=== PATIENT | female | born 1955 | race Caucasian/White ===

== ENCOUNTER 2018-03-30 20:23 | Inpatient (IN) | payer MEDICAID ==
[~2018-03-30] VITALS: Ht 177.8 cm; Wt 58.1 kg
[~2018-03-30 20:23] MED LIST: LORA1TAB PO
[2018-03-30] MEDS ORDERED: SULF1TAB48 PO (20:32)
--- NOTE | 2018-03-30 20:54 | NUR ---
Dr. Mallory JARAMILLO MD at bedside for MSE.
[2018-03-30] MEDS ORDERED: ACETAMINOPHEN ES 500 MG TABLET PO ONE (21:00)
[2018-03-30] MEDS ORDERED: KETOROLAC TROMETHAMINE 30 MG INJ IVP ONE (21:00)
[2018-03-30] MEDS ORDERED: IV NORMAL SALINE 1000 ML BAG IV ONE ×2 (21:00→22:30)
[2018-03-30] MEDS ORDERED: ALBUTEROL SULFATE 2.5 MG/3 ML NEBU NEB ONE (21:00)
[2018-03-30] MEDS ORDERED: ALBUTEROL SULFATE 2.5 MG/3 ML NEBU ONE (21:08)
[2018-03-30 21:12] LABS: *BLOOD, URINE 1+ (NEGATIVE); *CLARITY,URINE CLOUDY (CLEAR); *COLOR,URINE YELLOW (YELLOW); *KETONES,URINE TRACE (NEGATIVE); *PROTEIN,URINE 2+ (NEGATIVE); LEUKOCYTE ESTERASE ,URINE NEGATIVE (NEGATIVE); NITRITE, URINE NEGATIVE (NEGATIVE); PH,URINE 5.5 (5.0-8.0); UGLUCOSE NEGATIVE (NEGATIVE)
[2018-03-30 21:16] LABS: *BILIRUBIN,URIN 1+ (NEGATIVE)
--- NOTE | 2018-03-30 21:18 | NUR ---
Pt walked into ER with c/o shortness of breath, fever, & body aches x 4 days. Upon triage, pt temp is 101.8 F. SA02 98% room air. Pt placed on monitor.
[2018-03-30 21:31] LABS: BASOPHILS % (AUTO) 0.1 % (0.0-2.0); HEMOGLOBIN 10.4 g/dL (10.9-14.3); MEAN CORPUSCULAR HGB CONC 34 g/dL (32.3-35.6); MEAN CORPUSCULAR VOLUME 92.3 fL (75.5-95.3); MONOCYTES # (AUTO) 1.5 K/uL (2.0-10.0); MONOCYTES % (AUTO) 7.8 % (0.0-11.0); NEUTROPHILS # (AUTO) 16.5 K/uL (1.8-8.9); NEUTROPHILS % (AUTO) 87.1 % (38.5-71.5); PLATELET COUNT (AUTO) 231 K/uL (179-408); RED BLOOD CELL COUNT(AUTO) 3.36 MIL/uL (3.63-4.92); WHITE BLOOD COUNT (AUTO) 18.9 K/uL (3.8-11.8)
[2018-03-30 21:32] LABS: BACTERIA,URINE RARE /HPF (NONE SEEN); SQUAMOUS EPITHELIAL CELL,UR FEW /HPF (NONE SEEN); URINE AMORPHOUS URATE FEW /HPF
[2018-03-30] MEDS ORDERED: ACETAMINOPHEN ES 500 MG TABLET ONE (21:39)
[2018-03-30] MEDS ORDERED: KETOROLAC TROMETHAMINE 30 MG INJ ONE (21:40)
[2018-03-30 21:42] LABS: CREATININE 1.3 mg/dL (0.6-1.3); POTASSIUM 3.9 mmol/L (3.5-5.1)
[2018-03-30 21:57] LABS: BILIRUBIN,DIRECT 0.2 mg/dL (0.0-0.2); BILIRUBIN,TOTAL 0.7 mg/dL (0.2-1.0); TOTAL PROTEIN, SERUM 7.3 g/dL (6.4-8.2)
[2018-03-30] MEDS ORDERED: PIPERACILLIN SODIUM/TAZO 3.375 GM VIAL ONE (22:27)
[2018-03-30] MEDS ORDERED: VANCOMYCIN IV 1,000 MG in IV DEXTROSE 5% 250 ML IV ONE (22:30)
[2018-03-30] MEDS ORDERED: PIPERACILLIN SODIUM/TAZOBACTAM 3.375 G in IV DEXTROSE 5% 50 ML IV ONE (22:30)
--- NOTE | 2018-03-30 22:33 | NUR ---
Paged [email or web address] for panel call. Pending call back from Sara Arvizu NP.
[2018-03-30] MEDS ORDERED: ONDANSETRON 4 MG/2 ML VIAL IV PRN (22:45)
[2018-03-30] MEDS ORDERED: ACETAMINOPHEN 650 MG SUPP.RECT RC PRN (22:45)
--- NOTE | 2018-03-30 22:48 | NUR ---
Dr. Mallory JARAMILLO MD speaking to Sara Arvizu NP on phone.
[2018-03-30] MEDS ORDERED: NORMAL SALINE FLUSH 10 ML DISP.SYRIN ONE (22:52)
[2018-03-30] MEDS ORDERED: IOHEXOL 300MG/ML 100 ML INFUS..BTL ONE (22:52)
[2018-03-30] MEDS ORDERED: SWABABLE VALVE TRANSFER SET EA MC ONE (22:52)
[2018-03-30] MEDS ORDERED: IV NORMAL SALINE 250 ML IV ONE (22:52)
--- NOTE | 2018-03-30 23:06 | NUR ---
Dr. Tejada on phone with Sara Arvizu regarding [facility] status for pt.
--- NOTE | 2018-03-30 23:11 | NUR ---
Pt brought down to radiology dept for CT scan.
[2018-03-30] MEDS ORDERED: VANCOMYCIN IV 200 ML ONE (23:30)
--- NOTE | 2018-03-30 23:55 | NUR ---
Pt. admitted to [facility] , under care of Sara Arvizu NP. Dx: Sepsis Belongs List completed
[2018-03-31] VITALS (8 sets, daily range): BP systolic 81–102; BP diastolic 37–55
--- NOTE | 2018-03-31 00:15 | NUR ---
Received patient from ER via gurney accompanied by RNs DX:sepsis, abscess R buttocks. Patient AAO, NAD noted. Routine admission care discussed with patient. Verbalized understanding. Complete assessment done.
--- NOTE | 2018-03-31 00:30 | NUR ---
Another IV inserted to RFA with # 20 angiocath. Repeat Lactic acid done. Vancomycin IVPB resumed. Patient with multiple sores to lips, nose and hands. Also with R buttocks wound. Culture swab obtained. Photos taken of skin issues. Belonging list completed by Flor BARRETO.
--- NOTE | 2018-03-31 00:45 | NUR ---
Up to the BR without problems. Voided. C/o being hungry. Denies n/v.
[2018-03-31] MEDS: IV NS 1000 ML 1,000 ML IV PRN ×3 (00:47→20:02)
--- NOTE | 2018-03-31 01:00 | NUR ---
R buttocks wound culture and MRSA nasal swab to lab. [place] provided; on Regular diet. Ate well.
[2018-03-31] MEDS ORDERED: Z GUARD REMEDY PASTE 57 GM TUBE TOP PRN (03:30)
[2018-03-31] MEDS ORDERED: PIPERACILLIN/TAZOBACTAM/D5W 50 ML IV ONE (04:04)
[2018-03-31] MEDS ORDERED: PIPERACILLIN/TAZOBACTAM/D5W 50 ML IV SCH (06:00)
--- NOTE | 2018-03-31 06:53 | NUR ---
Slept well during the shift. Up to the BR to void with very minimal assistance due to main IV infusing. Patient cooperative; denies any discomfort. Tele monitor: SR rate 70's.
[2018-03-31 07:06] LABS: BASOPHILS % (AUTO) 0.3 % (0.0-2.0); EOSINOPHILS # (AUTO) 0.1 K/uL (0.0-0.7); EOSINOPHILS % (AUTO) 0.4 % (0.0-7.0); HEMATOCRIT 27.9 % (31.2-41.9); HEMOGLOBIN 9.6 g/dL (10.9-14.3); LYMPHOCYTES # (AUTO) 0.7 K/uL (20.0-40.0); MEAN CORPUSCULAR HEMOGLOBIN 31.4 uug (24.7-32.8); MEAN CORPUSCULAR HGB CONC 34 g/dL (32.3-35.6); MEAN CORPUSCULAR VOLUME 91.6 fL (75.5-95.3); MONOCYTES # (AUTO) 1.2 K/uL (2.0-10.0); MONOCYTES % (AUTO) 8.2 % (0.0-11.0); NEUTROPHILS # (AUTO) 12.9 K/uL (1.8-8.9); NEUTROPHILS % (AUTO) 86.1 % (38.5-71.5); PLATELET COUNT (AUTO) 175 K/uL (179-408); RED BLOOD CELL COUNT(AUTO) 3.04 MIL/uL (3.63-4.92)
[2018-03-31 07:22] LABS: THYROID STIMULATING HORMONE 1.49 mIU/mL (0.358-3.740)
[2018-03-31] MEDS ORDERED: PANTOPRAZOLE SODIUM 40 MG VIAL IV SCH (07:30)
[2018-03-31 07:35] LABS: POTASSIUM 3.5 mmol/L (3.5-5.1)
[2018-03-31 07:41] LABS: BILIRUBIN,TOTAL 0.9 mg/dL (0.2-1.0); MAGNESIUM 1.8 mg/dL (1.8-2.4); PHOSPHOROUS 2.8 mg/dL (2.5-4.9)
[2018-03-31] MEDS ORDERED: IV NORMAL SALINE 500 ML IV STA (07:51)
--- NOTE | 2018-03-31 08:00 | NUR ---
AWAKE ALERT AND VERBALLY RESPONSIVE NO SS OF PAIN OR DISTRESS. NOTED LOW BP 81/49 - 89/46. DENIES NASEA AND VOMITING, NO HEADACHE. DR SOTO NOTIFIED WITH ORDER TO BOLUS 500 CC NS X1
[2018-03-31] MEDS ORDERED: Z GUARD REMEDY PASTE 57 GM TUBE TOP SCH (09:00)
--- NOTE | 2018-03-31 09:12 | NUR ---
Clinical Pharmacy Note: Vancomycin Dosing per Pharmacy Subjective: Vancomycin IV to start on this 63 yo female patient for sepsis. Objective: BUN 18/Scr 1.0 WBC 15 Temperature 98.5 wt 58 kg ht 177.8 cm Assessment/Plan: Patient received vanco 1gm IVPB x1 on 03/30 at 2338. Will start vancomycin 1000mg IVPB Q21hr for a predicted vancomycin steady state trough level of 15.8 mcg/ml.Second dose today at 2100. Will draw a vancomycin trough level prior to the 4th dose of vancomycin (not ordered yet). Will monitor renal function and adjust vancomycin dose, if needed, should renal function change significantly. Will follow daily.
[2018-03-31] MEDS: PIPERACILLIN/TAZOBACTAM/D5W 3.375 G in PREMIXED 1 EACH IV SCH ×2 (13:06→21:54)
[2018-03-31] MEDS: ACETAMINOPHEN 325 MG TABLET PO PRN (13:06)
--- NOTE | 2018-03-31 13:13 | NUR ---
CONTINUE WITH IV HYDRATION AND IV ANTIBIOTICS NO SS OF ALLERGY REACTION
[2018-03-31] MEDS ORDERED: MORPHINE SULFATE 2 MG/1 ML DISP.SYRIN IV PRN (14:00)
[2018-03-31] MEDS: MORPHINE SULFATE 4 MG/1 ML DISP.SYRIN IV PRN (14:25)
[2018-03-31 15:04] LABS: IRON, SERUM 10 ug/dL (50-175)
[2018-03-31] MEDS: NICOTINE 21 MG/24HR PATCH TD SCH (15:23)
--- NOTE | 2018-03-31 19:35 | NUR ---
Patient is awake, aaox4 denies pain or any distress on assessment. safety measures in place, will continue to monitor patient
[2018-03-31] MEDS: LACTOBACILLUS RHAMNOSUS GG 1 EACH CAPSULE PO SCH (20:02)
[2018-03-31] MEDS: VANCOMYCIN IV 1 G in PREMIXED 0 EACH IV SCH (20:02)
[2018-04-01] VITALS: BP 107/49
--- NOTE | 2018-04-01 03:15 | NUR ---
Received report from SLOANE OQUENDO. Pt sleeping at this time, easily arousable. Tele noted to be SR with HR 66. Pt shows no signs of acute distress at this time. Aware of all orders. Will continue to monitor pt.
[2018-04-01 04:00] VITALS: BP 107/55
[2018-04-01] MEDS: PIPERACILLIN/TAZOBACTAM/D5W 3.375 G in PREMIXED 1 EACH IV SCH ×3 (05:58→21:11)
[2018-04-01] MEDS: PANTOPRAZOLE SODIUM 40 MG TABLET.DR PO SCH (06:05)
--- NOTE | 2018-04-01 07:07 | NUR ---
WOUND CARE CONSULT WOUND CARE RECEIVED CONSULT FOR R BUTTOCKS ABSCESS. WOUND CARE WILL DEFER CONSULT AND TREATMENT PLAN TO SURGICAL TEAM WHO ARE CURRENTLY FOLLOWING. PATIENT WITH JIMMY AT 19. WILL SEE PRN.
--- NOTE | 2018-04-01 07:15 | NUR ---
RECEIVED PATIENT ON BED ASLEEP, AAOX3 NO ACUTE DISTRESS NOTED. ON TELE SR 60'SIV ACCESS ON THE R FA #[id number] RUNNING NS @100CC/HR INFUSING WELL. WOUND CONSULT DEFERRED.NO COMPLAINTS OF PAIN/DISCOMFORT NO SOB. COMFORT MEASURES PROVIDED. CALL LIGHT WITHIN REACH WILL CONTINUE TO MONITOR CLOSELY.
[2018-04-01] MEDS: LACTOBACILLUS RHAMNOSUS GG 1 EACH CAPSULE PO SCH ×2 (08:15→20:08)
[2018-04-01] MEDS: NICOTINE 21 MG/24HR PATCH TD SCH (08:15)
[2018-04-01 10:04] LABS: BASOPHILS % (AUTO) 0.1 % (0.0-2.0); CREATININE 0.8 mg/dL (0.6-1.3); EOSINOPHILS # (AUTO) 0.1 K/uL (0.0-0.7); EOSINOPHILS % (AUTO) 0.6 % (0.0-7.0); HEMATOCRIT 29.8 % (31.2-41.9); HEMOGLOBIN 10.2 g/dL (10.9-14.3); LYMPHOCYTES # (AUTO) 0.6 K/uL (20.0-40.0); LYMPHOCYTES % (AUTO) 4.8 % (20.5-51.5); MAGNESIUM 1.9 mg/dL (1.8-2.4); MEAN CORPUSCULAR HEMOGLOBIN 30.9 uug (24.7-32.8); MEAN CORPUSCULAR HGB CONC 34 g/dL (32.3-35.6); MEAN CORPUSCULAR VOLUME 90.4 fL (75.5-95.3); MONOCYTES # (AUTO) 0.7 K/uL (2.0-10.0); MONOCYTES % (AUTO) 6.2 % (0.0-11.0); NEUTROPHILS # (AUTO) 10.2 K/uL (1.8-8.9); NEUTROPHILS % (AUTO) 88.3 % (38.5-71.5); POTASSIUM 3.9 mmol/L (3.5-5.1); RED BLOOD CELL COUNT(AUTO) 3.29 MIL/uL (3.63-4.92); WHITE BLOOD COUNT (AUTO) 11.6 K/uL (3.8-11.8)
[2018-04-01 10:38] LABS: PLATELET COUNT (AUTO) 213 K/uL (179-408)
[2018-04-01 11:03] VITALS: BP 108/51
--- NOTE | 2018-04-01 13:25 | NUR ---
Clinical Pharmacy Note: Vancomycin Dosing per Pharmacy Subjective: Vancomycin IV to continue on this 63 yo female patient for sepsis. Objective: BUN 12/Scr 0.8 WBC 11.6 Temperature 97.9 wt 58 kg ht 177.8 cm Assessment/Plan: Will continue same dose of vancomycin 1000mg IVPB Q21hr for today. 3rd dose due today at 1800. Will draw a vancomycin trough level prior to the 4th dose of vancomycin (ordered for 04/02 at 1430). Pharmacy will review the level when available & adjust the dose if needed. Will follow daily.
[2018-04-01 15:03] VITALS: BP 110/55
[2018-04-01] MEDS: VANCOMYCIN IV 1 G in PREMIXED 0 EACH IV SCH (17:59)
[2018-04-01] MEDS: SODIUM HYPOCHLORITE 0.125% 473 ML BOTTLE TP SCH (18:38)
--- NOTE | 2018-04-01 19:20 | NUR ---
RECEIVED PT AWAKE, ALERT, ORIENTEDX4. PT SHOWS NO SIGNS OF DISTRESS. IV INTACT AND PATENT. CALL LIGHT WITHIN REACH. SAFETY AND COMFORT PROVIDED. WILL CONTINUE TO MONITOR.
[2018-04-01 20:00] VITALS: BP 118/69
[2018-04-01] MEDS: MORPHINE SULFATE 4 MG/1 ML DISP.SYRIN IV PRN (21:25)
[2018-04-02 04:00] VITALS: BP 121/54
[2018-04-02] MEDS: PIPERACILLIN/TAZOBACTAM/D5W 3.375 G in PREMIXED 1 EACH IV SCH ×2 (05:18→13:35)
[2018-04-02] MEDS: PANTOPRAZOLE SODIUM 40 MG TABLET.DR PO SCH (06:02)
--- NOTE | 2018-04-02 06:31 | NUR ---
PT SLEPT THROUGHOUT THE SHIFT. PT SHOWS NO SIGNS OF DISTRESS. PRESCRIBED MEDICATION GIVEN AND PT TOLERATED IT WELL. PAIN MEDICATION GIVEN DOCTOR PRESCRIBED. PT TOLERATED IT WELL. SAFETY AND COMFORT PROVIDED. ALL NEEDS ARE MET. WILL ENDORSE TO INCOMING NURSE FOR CONTINUITY OF CARE.
[2018-04-02 07:42] LABS: BASOPHILS % (AUTO) 0.2 % (0.0-2.0); EOSINOPHILS # (AUTO) 0.1 K/uL (0.0-0.7); EOSINOPHILS % (AUTO) 0.8 % (0.0-7.0); HEMATOCRIT 28.8 % (31.2-41.9); LYMPHOCYTES # (AUTO) 0.7 K/uL (20.0-40.0); LYMPHOCYTES % (AUTO) 7.4 % (20.5-51.5); MEAN CORPUSCULAR HEMOGLOBIN 31.2 uug (24.7-32.8); MEAN CORPUSCULAR HGB CONC 35 g/dL (32.3-35.6); MONOCYTES # (AUTO) 0.6 K/uL (2.0-10.0); MONOCYTES % (AUTO) 5.8 % (0.0-11.0); NEUTROPHILS # (AUTO) 8.6 K/uL (1.8-8.9); NEUTROPHILS % (AUTO) 85.8 % (38.5-71.5); PLATELET COUNT (AUTO) 269 K/uL (179-408); WHITE BLOOD COUNT (AUTO) 10.1 K/uL (3.8-11.8)
[2018-04-02 08:00] LABS: BILIRUBIN,TOTAL 0.8 mg/dL (0.2-1.0); CREATININE 0.8 mg/dL (0.6-1.3); MAGNESIUM 1.9 mg/dL (1.8-2.4); PHOSPHOROUS 2.7 mg/dL (2.5-4.9); POTASSIUM 3.4 mmol/L (3.5-5.1); TOTAL PROTEIN, SERUM 6.4 g/dL (6.4-8.2)
[2018-04-02] MEDS: LACTOBACILLUS RHAMNOSUS GG 1 EACH CAPSULE PO SCH ×2 (08:03→20:04)
[2018-04-02] MEDS: NICOTINE 21 MG/24HR PATCH TD SCH (08:03)
[2018-04-02] MEDS: MORPHINE SULFATE 4 MG/1 ML DISP.SYRIN IV PRN ×4 (08:04→23:47)
[2018-04-02] MEDS ORDERED: POTASSIUM CHLORIDE 20 MEQ TAB.PRT.SR PO ONE (08:15)
[2018-04-02] MEDS: SODIUM HYPOCHLORITE 0.125% 473 ML BOTTLE TP SCH (09:35)
[2018-04-02 11:03] VITALS: BP 109/61
[2018-04-02] MEDS: IV NS 1000 ML 1,000 ML IV PRN (12:05)
--- NOTE | 2018-04-02 13:55 | NUR ---
Clinical Pharmacy Note: Vancomycin Dosing per Pharmacy Subjective: Vancomycin IV to continue on this 63 yo female patient for sepsis. Objective: BUN 7/Scr 0.8 WBC 10.1 Temperature 98.2 wt 58 kg ht 177.8 cm Assessment/Plan: Will continue same dose of vancomycin 1000mg IVPB Q21hr for today. Will draw a vancomycin trough level prior to the 4th dose of vancomycin (ordered for today at 1430). Will review the level e & adjust the dose if needed. Will follow daily. Addendum: 04/02/18 at 1546 by MARCELINO PADRON VANCOMYCIN TROUGH IS 4.5. WILL CHECK RANDOM VANCOMYCIN TOMORROW BEFORE CHANGING DOSE.
[2018-04-02 15:23] VITALS: BP 115/50
[2018-04-02] MEDS: VANCOMYCIN IV 1 G in PREMIXED 0 EACH IV SCH (16:07)
--- NOTE | 2018-04-02 19:12 | NUR ---
MIDLINE ACCESS CANCELLED, PATIENT REMAINS WITH PATENT AND INTACT IV ACCESS TO LEFT FOREARM 22G. PATIENT VERBALIZED MD WILL BE DISCHARGING HER TOMORROW. CHARGE NURSE NOTIFIED , JSUTIN, ORDER CANCELLED.
--- NOTE | 2018-04-02 20:00 | NUR ---
Received pt awake, AXO x4. Discussed and reveiewd plan of care with pt, pt cooperative. Pt complains of pain 8/10 level on pain scale. Pt shows no s/s of acute distress. Antibiotic therapy noted. Safety measures in place. Call light within reach.
[2018-04-02] MEDS ORDERED: ALBUTEROL SULFATE 2.5 MG/3 ML NEBU NEB PRN (21:00)
[2018-04-02] MEDS: PIPERACILLIN/TAZOBACTAM/D5W 50 ML IV SCH (21:32)
[2018-04-02 21:34] VITALS: BP 142/70
[2018-04-03] MEDS ORDERED: MAGNESIUM HYDROXIDE 30 ML LIQUID UDC PO PRN
[2018-04-03] MEDS: PIPERACILLIN/TAZOBACTAM/D5W 50 ML IV SCH ×2 (01:08→07:55)
[2018-04-03] MEDS: ACETAMINOPHEN 325 MG TABLET PO PRN (02:22)
[2018-04-03 05:02] VITALS: BP 146/74
--- NOTE | 2018-04-03 05:50 | NUR ---
No significant changes t/o shift. Laxative given x1 during shift, no presence of BM at this time. Pt has no complaints of pain. Denies SOB or severe headache. No fever noted. Pt shows no s/s of acute distress. Call light within reach. Will endorse accordingly.
[2018-04-03] MEDS: PANTOPRAZOLE SODIUM 40 MG TABLET.DR PO SCH (06:07)
--- NOTE | 2018-04-03 06:20 | NUR ---
Collected BM for OB STOOL ORDER. Sent specimen with cardiac cath lab technologist.
--- NOTE | 2018-04-03 07:15 | NUR ---
RECEIVED PATIENT ON BED ASLEEP, AAOX3 NO ACUTE DISTRESS NOTED. NO COMPLAINTS OF PAIN/DISCOMFORT NO SOB. COMFORT MEASURES PROVIDED. CALL LIGHT WITHIN REACH WILL CONTINUE TO MONITOR CLOSELY
[2018-04-03] MEDS: NICOTINE 21 MG/24HR PATCH TD SCH (08:10)
[2018-04-03] MEDS: SODIUM HYPOCHLORITE 0.125% 473 ML BOTTLE TP SCH (08:10)
[2018-04-03] MEDS: LACTOBACILLUS RHAMNOSUS GG 1 EACH CAPSULE PO SCH (08:10)
--- NOTE | 2018-04-03 08:19 | NUR ---
Clinical Pharmacy Note: Vancomycin Dosing per Pharmacy Subjective: Vancomycin IV to continue on this 63 yo female patient for sepsis/cellulitis Objective: BUN 7/Scr 0.8(04/02) WBC 10.1(04/02) Temperature 99 wt 58 kg ht 177.8 cm Vancomycin trough 4.5 on 04/02/18 at 1430 Vancomycin random 9.8 today at 0600(14 hrs post dose) Assessment/Plan: Since Vancomycin trough is unexpectedly low(confirmed by random this am), Will change vancomycin to 1000mg IV every 11hrs(first dose today at 0900) and draw trough by 4th dose(not ordered yet) for expected trough around 15. Will monitor daily.
[2018-04-03 08:40] LABS: *OCCULT BLOOD STOOL POSITIVE (NEGATIVE)
[2018-04-03] MEDS ORDERED: FLUTICASONE/VILANTEROL 1 EACH BLST.W.DEV INH SCH (09:00)
[2018-04-03] MEDS: VANCOMYCIN IV 1 G in PREMIXED 0 EACH IV SCH ×2 (09:36→10:32)
[2018-04-03] MEDS: MORPHINE SULFATE 4 MG/1 ML DISP.SYRIN IV PRN ×2 (09:44→10:32)
[2018-04-03] MEDS ORDERED: FERROUS SULFATE 325 MG TABEC PO SCH (10:30)
[2018-04-03 11:33] VITALS: BP 123/87
[2018-04-03] MEDS ORDERED: FLUT1BLS INH (12:25)
[2018-04-03] MEDS ORDERED: LACT1CAP57 PO (12:25)
[2018-04-03] MEDS ORDERED: FERR325T28 PO (12:25)
[2018-04-03] MEDS ORDERED: SULF1TAB48 PO (12:25)
[2018-04-03] MEDS ORDERED: ALBU8.5H8 INH (12:25)
[2018-04-03] MEDS ORDERED: ACET325T53 PO (12:25)
--- NOTE | 2018-04-03 13:50 | NUR ---
PATIENT DISCHARGED TO SELF IN STABLE CONDITION. DISCHARGE PAPERS AND PRESCRIPTION EXPLAINED TO PATIENT. PATIENT REFUSE PHARMACIST FOR MED EDUCATION. BELONGINGS LIST COUNTED AND COMPLETED. IV ACCESS REMOVED. ESCORTED PATIENT OUT OF HOPITAL IN WHEELCHAIR.
== END 2018-04-03 13:50 | disposition home or self-care (01) | DRG 720 ==
LOC: ER 20:24 → TELE-TD 23:55 → TELE 03-31 14:19 → MED 04-01 11:10
PROVIDERS: ADMIT Registered Nurse; ATTEND Internal Medicine
DX: A41.9 Sepsis, unspecified organism (principal); E43 Unspecified severe protein-calorie malnutrition; D69.6 Thrombocytopenia, unspecified; S31.823S Puncture wound without foreign body of left buttock, sequela; D64.9 Anemia, unspecified; F11.10 Opioid abuse, uncomplicated; F17.210 Nicotine dependence, cigarettes, uncomplicated; G89.29 Other chronic pain; J44.9 Chronic obstructive pulmonary disease, unspecified; L03.317 Cellulitis of buttock; X78.8XXS Intentional self-harm by other sharp object, sequela; Z96.641 Presence of right artificial hip joint; R62.7 Adult failure to thrive; Z68.1 Body mass index [BMI] 19.9 or less, adult; Z59.0 Homelessness; F19.10 Other psychoactive substance abuse, uncomplicated; Z86.19 Personal history of other infectious and parasitic diseases; I45.10 Unspecified right bundle-branch block
CPT/HCPCS: 36415; 70030-TC; 71045; 72193; 83550; 83605; 83735; 84100; 84443; 85025; 85730; 86403; 87040; 87070; 87086; 87400; 93005; 93307; A4663; A9150; C9113; G0378; J1885; J2270; J2543; J3370; J3490; J7030; J7040; J7050; J7060; Q9967

== ENCOUNTER 2018-05-26 16:55 | Emergency (ER) | payer MEDICAID ==
[~2018-05-26] VITALS: Ht 172.7 cm; Wt 52.6 kg
[~2018-05-26 16:55] MED LIST changes: +ACET325T53 PO; +ALBU8.5H8 INH; +FERR325T28 PO; +FLUT1BLS INH; +LACT1CAP57 PO; -LORA1TAB PO; +SULF1TAB48 PO
--- NOTE | 2018-05-26 17:26 | NUR ---
Dr Tejada seen and examined the pt.
[2018-05-26] MEDS ORDERED: IOHEXOL 350 100 ML INFUS..BTL ONE (17:35)
[2018-05-26] MEDS ORDERED: IV NORMAL SALINE 250 ML IV ONE (17:35)
[2018-05-26] MEDS ORDERED: NORMAL SALINE FLUSH 10 ML DISP.SYRIN ONE (17:35)
[2018-05-26] MEDS ORDERED: SWABABLE VALVE TRANSFER SET EA MC ONE (17:35)
[2018-05-26 17:57] LABS: BASOPHILS % (AUTO) 0.4 % (0.0-2.0); EOSINOPHILS # (AUTO) 0.5 K/uL (0.0-0.7); EOSINOPHILS % (AUTO) 7.6 % (0.0-7.0); HEMATOCRIT 32.6 % (31.2-41.9); HEMOGLOBIN 10.7 g/dL (10.9-14.3); LYMPHOCYTES # (AUTO) 1.5 K/uL (20.0-40.0); LYMPHOCYTES % (AUTO) 24.4 % (20.5-51.5); MEAN CORPUSCULAR HEMOGLOBIN 29.5 uug (24.7-32.8); MEAN CORPUSCULAR HGB CONC 33 g/dL (32.3-35.6); MEAN CORPUSCULAR VOLUME 89.9 fL (75.5-95.3); MONOCYTES # (AUTO) 0.4 K/uL (2.0-10.0); MONOCYTES % (AUTO) 7.3 % (0.0-11.0); NEUTROPHILS # (AUTO) 3.6 K/uL (1.8-8.9); NEUTROPHILS % (AUTO) 60.3 % (38.5-71.5); PLATELET COUNT (AUTO) 218 K/uL (179-408); RED BLOOD CELL COUNT(AUTO) 3.63 MIL/uL (3.63-4.92)
[2018-05-26 18:21] LABS: CREATININE 0.8 mg/dL (0.6-1.3)
[2018-05-26 18:33] LABS: BILIRUBIN,DIRECT 0.2 mg/dL (0.0-0.2); BILIRUBIN,TOTAL 0.6 mg/dL (0.2-1.0); TOTAL PROTEIN, SERUM 7.5 g/dL (6.4-8.2)
--- NOTE | 2018-05-26 18:42 | NUR ---
Pt ate dinner w/ good appetite. Pt signed consent for IV contrast, palced in the chart.
--- NOTE | 2018-05-26 19:30 | NUR ---
Pt refusing to be placed on monitor at this time.
--- NOTE | 2018-05-26 19:40 | NUR ---
Pt instructed not to remain NPO until CTA.
[2018-05-26] MEDS ORDERED: ONDANSETRON 4 MG/2 ML VIAL ONE (19:43)
[2018-05-26] MEDS ORDERED: ONDANSETRON IV *ER 4 MG/2 ML VIAL IV ONE (19:45)
--- NOTE | 2018-05-26 20:05 | NUR ---
IV CONTRAST INFILTRATION IN RIGHT UPPER ARM. PUT ON WARM COMPRESS, CALLED THE ER NOTIFIED NURSE AND DR. ACHARYA.
--- NOTE | 2018-05-26 20:14 | NUR ---
IV removed. Catheter intact and site benign. Pressure and 4x4 gauze applied to site. No bleeding noted.
--- NOTE | 2018-05-26 20:15 | NUR ---
Pt refusing to have IV restarted and CTA redone. Dr. Polanco made aware.
--- NOTE | 2018-05-26 21:10 | NUR ---
Patient eloped from facility. ER physician notified.
== END 2018-05-26 21:20 | disposition left against medical advice (07) ==
LOC: ER 16:55
DX: M54.6 Pain in thoracic spine (principal); R07.9 Chest pain, unspecified; J44.9 Chronic obstructive pulmonary disease, unspecified; F17.200 Nicotine dependence, unspecified, uncomplicated; Z79.899 Other long term (current) drug therapy; Z79.51 Long term (current) use of inhaled steroids; Z59.0 Homelessness
CPT/HCPCS: 36415; 80048; 80076; 83880; 84484; 85025; 85730; 93005; 96374; 99284; J2405; Q9967; 70030-TC; A4663; J3490; J7050

== ENCOUNTER 2018-06-05 17:42 | Emergency (ER) | payer MEDICAID ==
[~2018-06-05] VITALS: Ht 172.7 cm; Wt 52.2 kg
--- NOTE | 2018-06-05 17:52 | NUR ---
PATIENT C/O CHEST WALL PAIN. [address] KENT AT BEDSIDE. PATIENT IS AWAKE AND ALERT.
--- NOTE | 2018-06-05 18:01 | NUR ---
PATIENT STATES SHE IS A "VERY HARD IV STICK" AND DOES NOT WANT AN IV RIGHT NOW. DR KENT AWARE.
[2018-06-05 18:10] LABS: BASOPHILS # (AUTO) 0.1 K/uL (0.0-8.0); BASOPHILS % (AUTO) 0.9 % (0.0-2.0); EOSINOPHILS # (AUTO) 0.3 K/uL (0.0-0.7); EOSINOPHILS % (AUTO) 4.6 % (0.0-7.0); HEMATOCRIT 32.6 % (31.2-41.9); LYMPHOCYTES # (AUTO) 1.7 K/uL (20.0-40.0); LYMPHOCYTES % (AUTO) 26.8 % (20.5-51.5); MEAN CORPUSCULAR HEMOGLOBIN 29.9 uug (24.7-32.8); MEAN CORPUSCULAR HGB CONC 34 g/dL (32.3-35.6); MEAN CORPUSCULAR VOLUME 89.1 fL (75.5-95.3); MONOCYTES # (AUTO) 0.4 K/uL (2.0-10.0); MONOCYTES % (AUTO) 5.8 % (0.0-11.0); NEUTROPHILS # (AUTO) 3.9 K/uL (1.8-8.9); NEUTROPHILS % (AUTO) 61.9 % (38.5-71.5); PLATELET COUNT (AUTO) 245 K/uL (179-408); RED BLOOD CELL COUNT(AUTO) 3.66 MIL/uL (3.63-4.92); WHITE BLOOD COUNT (AUTO) 6.4 K/uL (3.8-11.8)
[2018-06-05 18:20] LABS: CREATININE 0.9 mg/dL (0.6-1.3)
[2018-06-05 18:26] LABS: BILIRUBIN,DIRECT 0.1 mg/dL (0.0-0.2); BILIRUBIN,TOTAL 0.5 mg/dL (0.2-1.0); TOTAL PROTEIN, SERUM 7.5 g/dL (6.4-8.2)
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
== END 2018-06-05 19:09 | disposition home or self-care (01) ==
LOC: ER 17:44
DX: R07.89 Other chest pain (principal); J44.9 Chronic obstructive pulmonary disease, unspecified; F17.200 Nicotine dependence, unspecified, uncomplicated; Z59.0 Homelessness; Z79.899 Other long term (current) drug therapy; Z79.51 Long term (current) use of inhaled steroids
CPT/HCPCS: 36415; 70030-TC; 71045; 85025; 85730; 93005; A4663

== ENCOUNTER 2018-06-06 19:55 | Emergency (ER) | payer MEDICAID ==
[~2018-06-06] VITALS: Ht 172.7 cm; Wt 52.2 kg
--- NOTE | 2018-06-06 20:10 | NUR ---
PT BIB SELF C/O CHEST PAIN. A/OX4 PT ABLE TO VERBALIZE COMPLAINTS. DENIES ANY DIZZINESS, OR SOB. PT AMBULATORY STEADY GAIT.
[2018-06-06] MEDS ORDERED: KETOROLAC TROMETHAMINE 30 MG INJ ONE (20:15)
[2018-06-06] MEDS ORDERED: KETOROLAC TROMETHAMINE 30 MG INJ IM ONE (20:15)
--- NOTE | 2018-06-06 20:25 | NUR ---
Patient given written and verbal discharge instructions. Patient verbalizes understanding of instructions. Patient is ambulatory with steady gait. Refuses offer of longterm placement. Patient given list of available shelters in surrounding area.
[2018-06-06 20:48] VITALS: BP 152/73
== END 2018-06-06 20:38 | disposition other institution (70) ==
LOC: ER 19:57
DX: R07.89 Other chest pain (principal); J44.9 Chronic obstructive pulmonary disease, unspecified; F17.290 Nicotine dependence, other tobacco product, uncomplicated; Z59.0 Homelessness; Z79.899 Other long term (current) drug therapy; Z79.2 Long term (current) use of antibiotics
CPT/HCPCS: 96372; 99283; 99406; J1885; A4663

== ENCOUNTER 2018-07-28 17:38 | Emergency (ER) | payer MEDICAID ==
[~2018-07-28] VITALS: Ht 175.3 cm; Wt 52.2 kg
--- NOTE | 2018-07-28 17:59 | NUR ---
PT REFUSED TO ADDRESS HER HOMELESSNESS. SHE STATES THAT SHE HAS A TENT AND IS HAPPY WITH IT - EXPRESSED DISPLEASURE W/ ANY INTERVENTION PROPOSED - STATES SHE CAME HERE FOR HER PAIN AND NOT FOR HER HOMELESSNESS.
[2018-07-28] MEDS ORDERED: KETOROLAC TROMETHAMINE 15 MG INJ ONE (18:10)
[2018-07-28] MEDS: KETOROLAC TROMETHAMINE 15 MG INJ IM ONE (18:13)
--- NOTE | 2018-07-28 18:17 | NUR ---
Patient discharged to home in stable conditon. Written and verbal after care instructions given. Patient verbalizes understanding of instructions.PT WALKSIN STEADY GAIT. HOSPITAL SANDWICH PROVIDED FOR PT PER REQUEST.
== END 2018-07-28 18:35 | disposition home or self-care (01) ==
LOC: ER 17:38
DX: M54.9 Dorsalgia, unspecified (principal); J44.9 Chronic obstructive pulmonary disease, unspecified; F17.200 Nicotine dependence, unspecified, uncomplicated; Z59.0 Homelessness
CPT/HCPCS: 96372; 99283; J1885; A4663

== ENCOUNTER 2018-10-07 22:35 | Emergency (ER) | payer MEDICAID ==
[~2018-10-07] VITALS: Ht 172.7 cm; Wt 54.4 kg
[2018-10-07] MEDS ORDERED: IBUP-1954 PO (22:51)
--- NOTE | 2018-10-07 23:20 | NUR ---
PATIENT WALKED INTOER WITH C/O OF CHRONIC BACK PAIN. DENIES CHEST PAIN OR SHORTNESS OF BREATH AT THIS TIME. DR. BURCH AT BEDSIDE FOR MSE.
[2018-10-07] MEDS ORDERED: KETOROLAC TROMETHAMINE 30 MG INJ IM ONE (23:30)
[2018-10-07] MEDS ORDERED: HYDROCODONE/APAP 10-325 MG TABLET PO ONE (23:30)
[2018-10-07] MEDS ORDERED: CARISOPRODOL 350 MG TABLET PO ONE (23:30)
[2018-10-07] MEDS ORDERED: KETOROLAC TROMETHAMINE 30 MG INJ ONE (23:37)
[2018-10-07] MEDS ORDERED: CARISOPRODOL 350 MG TABLET ONE (23:38)
[2018-10-07] MEDS ORDERED: HYDROCODONE/APAP 10-325 MG TABLET ONE (23:38)
--- NOTE | 2018-10-07 23:41 | NUR ---
Patient discharged to home in stable conditon. Written and verbal after care instructions given. Patient verbalizes understanding of instructions. PATIENT LEFT WITH STABLE GAIT.
[2018-10-07 23:42] VITALS: BP 114/65
== END 2018-10-07 23:42 | disposition home or self-care (01) ==
LOC: ER 22:38
DX: M62.830 Muscle spasm of back (principal); G89.29 Other chronic pain; M54.6 Pain in thoracic spine; F11.10 Opioid abuse, uncomplicated; J44.9 Chronic obstructive pulmonary disease, unspecified; F17.290 Nicotine dependence, other tobacco product, uncomplicated; F15.10 Other stimulant abuse, uncomplicated; Z59.0 Homelessness; Z79.1 Long term (current) use of non-steroidal anti-inflammatories (NSAID)
CPT/HCPCS: 96372; 99283; J1885; A4663

== ENCOUNTER 2018-10-10 21:03 | Inpatient (IN) | payer MEDICAID ==
[~2018-10-10] VITALS: Ht 167.6 cm; Wt 58.6 kg
[~2018-10-10 21:03] MED LIST changes: -ACET325T53 PO; -ALBU8.5H8 INH; -FERR325T28 PO; -FLUT1BLS INH; +IBUP-1954 PO; -LACT1CAP57 PO; -SULF1TAB48 PO
[2018-10-10] MEDS ORDERED: VANCOMYCIN IV 1,000 MG in IV DEXTROSE 5% 250 ML IV ONE (21:30)
[2018-10-10] MEDS ORDERED: MORPHINE SULFATE 2 MG/1 ML DISP.SYRIN IV ONE (21:30)
[2018-10-10] MEDS ORDERED: IV NORMAL SALINE 1000 ML BAG IV ONE (21:30)
[2018-10-10] MEDS ORDERED: PIPERACILLIN SODIUM/TAZOBACTAM 3.375 G in IV DEXTROSE 5% 50 ML IV ONE (21:30)
--- NOTE | 2018-10-10 21:48 | NUR ---
PT STATED HER STOMACH HAD KNOTS IN IT ABD FELT TWO ABSCESS ON BOTH SIDE OF HER ABDOMEN STATED IT HAPPEN THE 18TH AND SHE DOESN'T WANT TO OF SEPSIS ABD TENDER TO TOUCH AND REDDNESS AND SWOLLEN PAIN LEVEL 10 DENIES N/V/D
[2018-10-10] MEDS ORDERED: MORPHINE SULFATE 4 MG/1 ML DISP.SYRIN ONE (21:53)
[2018-10-10] MEDS ORDERED: VANCOMYCIN IV 200 ML ONE (21:54)
[2018-10-10] MEDS ORDERED: PIPERACILLIN/TAZOBACTAM/D5W 50 ML IV ONE (21:54)
[2018-10-10] MEDS ORDERED: MORPHINE SULFATE 2 MG/1 ML DISP.SYRIN ONE (21:54)
[2018-10-10 21:56] LABS: *BILIRUBIN,URIN NEGATIVE (NEGATIVE); *CLARITY,URINE CLEAR (CLEAR); *COLOR,URINE YELLOW (YELLOW); *KETONES,URINE NEGATIVE (NEGATIVE); *UROBILINOGEN,URINE >=8.0 E.U./dl (NORMAL); LEUKOCYTE ESTERASE ,URINE TRACE (NEGATIVE); NITRITE, URINE NEGATIVE (NEGATIVE); PH,URINE 6.5 (5.0-8.0); UGLUCOSE NEGATIVE (NEGATIVE)
[2018-10-10 21:58] LABS: CREATININE 0.8 mg/dL (0.6-1.3); POTASSIUM 4.2 mmol/L (3.5-5.1)
--- NOTE | 2018-10-10 22:00 | NUR ---
PT WAS GIVEN THE MORPHINE WITHOUT INCIDENT 2 MINUTES LATER THE PT STATED HER IV SITE HURT AND IT STARTED TO INFILTRATE HL REMOVED SITE DEONDRE NEGRETE INFORMED SEVERAL NURSES TRIED PLACING ANOTHER IV LINE WITHOUT EFFECT
[2018-10-10 22:04] LABS: BILIRUBIN,DIRECT 0.2 mg/dL (0.0-0.2); BILIRUBIN,TOTAL 0.6 mg/dL (0.2-1.0); TOTAL PROTEIN, SERUM 7.6 g/dL (6.4-8.2)
[2018-10-10 22:08] LABS: BASOPHILS % (AUTO) 0.2 % (0.0-2.0); EOSINOPHILS # (AUTO) 0.1 K/uL (0.0-0.7); EOSINOPHILS % (AUTO) 0.7 % (0.0-7.0); HEMATOCRIT 34.7 % (31.2-41.9); HEMOGLOBIN 11.6 g/dL (10.9-14.3); LYMPHOCYTES # (AUTO) 0.9 K/uL (20.0-40.0); LYMPHOCYTES % (AUTO) 10.9 % (20.5-51.5); MEAN CORPUSCULAR HEMOGLOBIN 30.4 uug (24.7-32.8); MEAN CORPUSCULAR HGB CONC 33 g/dL (32.3-35.6); MEAN CORPUSCULAR VOLUME 91.1 fL (75.5-95.3); MONOCYTES # (AUTO) 0.8 K/uL (2.0-10.0); MONOCYTES % (AUTO) 8.9 % (0.0-11.0); NEUTROPHILS # (AUTO) 6.8 K/uL (1.8-8.9); NEUTROPHILS % (AUTO) 79.3 % (38.5-71.5); PLATELET COUNT (AUTO) 242 K/uL (179-408); RED BLOOD CELL COUNT(AUTO) 3.81 MIL/uL (3.63-4.92); WHITE BLOOD COUNT (AUTO) 8.5 K/uL (3.8-11.8)
[2018-10-10 22:09] LABS: *BLOOD, URINE TRACE (NEGATIVE)
[2018-10-10 22:11] LABS: BACTERIA,URINE FEW /HPF (NONE SEEN); WBC,URINE 0-3 /HPF (0-3)
--- NOTE | 2018-10-10 22:16 | NUR ---
1014PM Called [facility] per ED MD request, spoke with Leanna who put a page out to Dr. Julian. DEWEY Loving
--- NOTE | 2018-10-10 22:20 | NUR ---
Dr. Julian speaking with CLINT NEGRETE
[2018-10-10] MEDS ORDERED: SWABABLE VALVE TRANSFER SET EA MC ONE (22:37)
[2018-10-10] MEDS ORDERED: IV NORMAL SALINE 0 ML IV ONE (22:38)
[2018-10-10] MEDS ORDERED: IOHEXOL 300MG/ML 100 ML INFUS..BTL ONE (22:38)
[2018-10-10] MEDS ORDERED: TEMAZEPAM 15 MG CAPSULE PO PRN (22:45)
[2018-10-10] MEDS ORDERED: ACETAMINOPHEN 325 MG TABLET PO PRN (22:45)
[2018-10-10] MEDS ORDERED: ONDANSETRON 4 MG/2 ML VIAL IV PRN (22:45)
[2018-10-10] MEDS ORDERED: MAGNESIUM HYDROXIDE 30 ML LIQUID UDC PO PRN (22:45)
--- NOTE | 2018-10-10 23:22 | NUR ---
MELISSA speaking with DR. Benson (SURGERY).
--- NOTE | 2018-10-10 23:30 | NUR ---
PT RESTING QUIETLY IS AWARE OF HER ADMISSION AND WHY COMFORT AND SAFETY MAINTAINED
[2018-10-10] MEDS ORDERED: HYDROMORPHONE 2 MG/1 ML DISP.SYRIN ONE (23:45)
[2018-10-10] MEDS ORDERED: HYDROMORPHONE 1 MG/1 ML DISP.SYRIN IM ONE (23:45)
[2018-10-11] VITALS (9 sets, daily range): BP systolic 107–129; BP diastolic 51–69
--- NOTE | 2018-10-11 02:00 | NUR ---
PT IS GETTING ALITTLE AGITATED SHE WANT TO GO TO HER ROOM TEACHING GIVEN COMFORT AND SAFETY MAINTAINED
--- NOTE | 2018-10-11 02:45 | NUR ---
1ST CALL PLACED FOR [facility].
--- NOTE | 2018-10-11 02:50 | NUR ---
PT WAS TRANSFER TO HER ROOM REFUSED TO CHANGE INTO A GOWN REFUSED TO LET FREIGHT AIR BRAKE FITTER PUT HER PERSONNEL THINGS IN A BELONGING BAG REPORT WAS GIVEN TO JOSS ANTON ALL QUESTIONS ANSWERED PT CONDITION APPEARS TO BE STABLE
[2018-10-11] MEDS: HYDROCODONE/APAP 10-325 MG TABLET PO PRN ×2 (03:17→17:29)
--- NOTE | 2018-10-11 03:30 | NUR ---
Received patient from ER. Dx: Abdominal wall cellulitis. Patient A/Ox4 Belongings and list with patient. Patient walks with a steady, but weak gait. No signs of acute distress noted. Complained of 6/10 pain in the abdomen. No complaints of SOB. IV on the left AC is intact and patent. Patient will be having surgery tomorrow morning to drain abdominal abscess. Patient oriented to unit and room, instructed patient to use call light. Safety measures initiated. Bed is low and locked, call light within reach. Will continue with admission process.
[2018-10-11] MEDS: IV NS 1000 ML 1,000 ML IV PRN (03:49)
[2018-10-11] MEDS ORDERED: PIPERACILLIN/TAZOBACTAM/D5W 3.375 G in PREMIXED 1 EACH IV ONE ×2 (04:00→06:00)
[2018-10-11] MEDS ORDERED: PIPERACILLIN/TAZOBACTAM/D5W 50 ML IV ONE (05:37)
[2018-10-11 06:45] LABS: BASOPHILS % (AUTO) 0.3 % (0.0-2.0); EOSINOPHILS # (AUTO) 0.1 K/uL (0.0-0.7); EOSINOPHILS % (AUTO) 0.6 % (0.0-7.0); HEMATOCRIT 30.7 % (31.2-41.9); HEMOGLOBIN 10.2 g/dL (10.9-14.3); LYMPHOCYTES # (AUTO) 1.2 K/uL (20.0-40.0); LYMPHOCYTES % (AUTO) 13.3 % (20.5-51.5); MEAN CORPUSCULAR HEMOGLOBIN 30.4 uug (24.7-32.8); MEAN CORPUSCULAR HGB CONC 33 g/dL (32.3-35.6); MEAN CORPUSCULAR VOLUME 91.8 fL (75.5-95.3); MONOCYTES # (AUTO) 0.9 K/uL (2.0-10.0); NEUTROPHILS # (AUTO) 6.6 K/uL (1.8-8.9); NEUTROPHILS % (AUTO) 75.8 % (38.5-71.5); PLATELET COUNT (AUTO) 224 K/uL (179-408); RED BLOOD CELL COUNT(AUTO) 3.35 MIL/uL (3.63-4.92); WHITE BLOOD COUNT (AUTO) 8.8 K/uL (3.8-11.8)
[2018-10-11 06:46] LABS: CREATININE 0.8 mg/dL (0.6-1.3); PHOSPHOROUS 3.5 mg/dL (2.5-4.9); POTASSIUM 3.5 mmol/L (3.5-5.1)
[2018-10-11] MEDS ORDERED: POLYMYXIN B SULFATE 500,000 UNITS, BACITRACIN 50,000 UNITS, NORMAL SALINE 20 ML MC ONE ×3 (07:15)
[2018-10-11] MEDS ORDERED: BUPIVACAINE 0.25% 30 ML VIAL ONE (07:45)
--- NOTE | 2018-10-11 07:50 | NUR ---
patient alert and oriented notified to be going to the procedure and and picked up for the procedure
[2018-10-11] MEDS ORDERED: IPRATROPIUM BROMIDE 0.5 MG/2.5 ML NEBU NEB PRN (08:00)
[2018-10-11] MEDS ORDERED: ALBUTEROL SULFATE 2.5 MG/3 ML NEBU NEB PRN (08:00)
[2018-10-11] MEDS ORDERED: KETOROLAC TROMETHAMINE 30 MG INJ ONE (08:49)
[2018-10-11] MEDS ORDERED: FENTANYL CITRATE 100 MCG/2 ML AMPUL ONE (08:49)
[2018-10-11] MEDS: NICOTINE 21 MG/24HR PATCH TD SCH (09:59)
[2018-10-11] MEDS: VANCOMYCIN IV SCH (11:18)
[2018-10-11] MEDS: DEXTROSE 5% IV SCH (11:18)
--- NOTE | 2018-10-11 12:30 | NUR ---
MIDLINE INSERTED, 18 GAUGE RIGHT BASILIC, TOLERATED WELL
[2018-10-11] MEDS: PIPERACILLIN/TAZOBACTAM/D5W 3.375 G in PREMIXED 1 EACH IV SCH ×2 (13:13→21:55)
--- NOTE | 2018-10-11 13:58 | NUR ---
Clinical Pharmacy Note: Vancomycin Pharmacy to Dose Subjective: To start vancomycin in this 63 y/o female for indication of "suspected infection" (ab wall cellulitis) Objective: weight 58kg height 167cm BUN 10 Scr 0.8 Wbc 8.5 Temp 99.1 1gm in ER 10/10 @ 2130 Assessment/Plan renal function appears stable, will start vancomycin regimen of 850mg q14h for estimated trough of 16.8, first dose today at 1200. Will order trough before 4th scheduled dose (not ordered yet). Will follow and dose per level if condition were to become unstable. Otherwise will continue with trough when due and adjust as needed. Will follow
--- NOTE | 2018-10-11 18:38 | NUR ---
PATIENT IN BED WATCHING TV, PAIN MEDICATIONS GIVEN EARLIER, IV INTACT AND PATENT WITH IV FLUID @75ML/HR, NO SOB NOTED, BED IN LOW POSITION , 2 SIDE RAILS UP , AND BED ALARM ON, SAFETY PROVIDED AT ALL TIMES. WILL CONTINUE TO MONITOR AD CONTINUE TREATMENT PLAN.
--- NOTE | 2018-10-11 19:40 | NUR ---
Received patient resting in bed, easily to arouse. No signs of acute distress. No complaints of pain or SOB. Patient stated the procedure went well. Treatment for site will start tomorrow. IVF running on the MARIANA midline, no signs of infection/infiltration. Patient able to make needs known. Safety measures initiated. Bed is low and locked, call light within reach. Will continue to monitor.
[2018-10-12] MEDS: HYDROCODONE/APAP 10-325 MG TABLET PO PRN ×4 (01:18→20:31)
[2018-10-12] MEDS: IV NS 1000 ML 1,000 ML IV PRN ×2 (01:20→14:00)
[2018-10-12] MEDS: DEXTROSE 5% IV SCH ×2 (01:20→16:17)
[2018-10-12] MEDS: VANCOMYCIN IV SCH ×2 (01:20→16:17)
--- NOTE | 2018-10-12 05:41 | NUR ---
Patient slept well throughout shift. No signs of acute distress noted. Complained of pain with PRN pain medication given x1 and was effective. No complaints of SOB, patient 97% on room air. Patient did not want DVT pumps on, patient ambulates to restroom with a steady, but weak gait. Antibiotics given as ordered and tolerated well. Vitals WNL. Safety measures given.
[2018-10-12] MEDS: PIPERACILLIN/TAZOBACTAM/D5W 3.375 G in PREMIXED 1 EACH IV SCH ×3 (06:00→21:03)
[2018-10-12 06:18] VITALS: BP 139/79
[2018-10-12 06:35] LABS: CREATININE 0.7 mg/dL (0.6-1.3); POTASSIUM 3.8 mmol/L (3.5-5.1)
[2018-10-12 06:43] LABS: BASOPHILS # (AUTO) 0.1 K/uL (0.0-8.0); BASOPHILS % (AUTO) 0.7 % (0.0-2.0); EOSINOPHILS # (AUTO) 0.1 K/uL (0.0-0.7); EOSINOPHILS % (AUTO) 0.6 % (0.0-7.0); HEMOGLOBIN 9.5 g/dL (10.9-14.3); LYMPHOCYTES # (AUTO) 1.3 K/uL (20.0-40.0); LYMPHOCYTES % (AUTO) 14.9 % (20.5-51.5); MEAN CORPUSCULAR HEMOGLOBIN 30.2 uug (24.7-32.8); MEAN CORPUSCULAR HGB CONC 33 g/dL (32.3-35.6); MEAN CORPUSCULAR VOLUME 92.1 fL (75.5-95.3); MONOCYTES # (AUTO) 0.7 K/uL (2.0-10.0); MONOCYTES % (AUTO) 7.8 % (0.0-11.0); NEUTROPHILS # (AUTO) 6.7 K/uL (1.8-8.9); PLATELET COUNT (AUTO) 222 K/uL (179-408); RED BLOOD CELL COUNT(AUTO) 3.15 MIL/uL (3.63-4.92); WHITE BLOOD COUNT (AUTO) 8.8 K/uL (3.8-11.8)
[2018-10-12] MEDS: NICOTINE 21 MG/24HR PATCH TD SCH (08:18)
[2018-10-12] MEDS ORDERED: EPHEDRINE SULFATE 50 MG/ML AMPUL MC ONE (09:17)
[2018-10-12] MEDS ORDERED: IRR NORMAL SALINE IRRIGATION 2000 ML BOTTLE IR ONE (09:17)
[2018-10-12] MEDS ORDERED: LIDOCAINE-MPF 2% 5 ML VIAL MC ONE (09:17)
[2018-10-12] MEDS ORDERED: PROPOFOL 200 MG/20 ML BOTTLE IV ONE (09:17)
[2018-10-12] MEDS ORDERED: SEVOFLURANE 250 ML BOTTLE IH ONE (09:17)
[2018-10-12] MEDS ORDERED: IV NORMAL SALINE 1000 ML BAG IV ONE (09:17)
[2018-10-12] MEDS ORDERED: DEXAMETHASONE SOD PHOSPHATE 4 MG INJ IV ONE (09:17)
--- NOTE | 2018-10-12 11:13 | NUR ---
WOUND CARE RECEIVED CONSULT FOR ABDOMINAL WALL CELLULITIS. WOUND CARE WILL DEFER CONSULT AND TREATMENT PLAN TO SURGEON DR GRANT WHO IS CURRENTLY FOLLOWING THIS PATIENT. PATIENT WITH JIMMY AT 21, WILL SEE PRN.
[2018-10-12 12:10] VITALS: BP 144/73
--- NOTE | 2018-10-12 12:30 | NUR ---
Clinical Pharmacy Note: Vancomycin Pharmacy to Dose Subjective: To continue vancomycin in this 63 y/o female for indication of "suspected infection" (ab wall cellulitis) Objective: weight 58kg height 167cm BUN 16 Scr 0.7 Wbc 8.8 Temp 98.1 Assessment/Plan Will continue same dose of vancomycin regimen of 850mg IVPB q14h for today. 3rd dose today at 1600. Will order trough before 4th scheduled dose (ordered for 10/13 at 0530- RN has been informed to hold 0600 dose if vanco trough above 20 mcg/ml). Will follow the level in am & adjust the dose if needed. Will follow
[2018-10-12 15:58] VITALS: BP 135/69
--- NOTE | 2018-10-12 19:03 | NUR ---
Patient AO4, No signs of acute distress noted. Complained of pain with PRN pain medication given x2 and was effective. No complaints of SOB, patient 97% on room air. Antibiotics given as ordered and tolerated well. Vitals WNL. Safety maintained
[2018-10-12 20:02] VITALS: BP 167/81
[2018-10-12] MEDS: ACIDOPHILUS/BULGARICUS CHEW TAB PO SCH (20:27)
[2018-10-13] MEDS: HYDROCODONE/APAP 10-325 MG TABLET PO PRN ×3 (04:27→17:35)
[2018-10-13] MEDS: PIPERACILLIN/TAZOBACTAM/D5W 3.375 G in PREMIXED 1 EACH IV SCH ×3 (05:05→22:34)
[2018-10-13 05:56] VITALS: BP 147/71
--- NOTE | 2018-10-13 06:06 | NUR ---
pT ALERT AND ORIENTEDX4. PT SLEPT THROUGHOUT THE SHIFT. PT SHOWS NO SIGNS OF ACUTE DISTRESS. PRESCRIBED MEDICATION GIVEN AND PT TOLERATED IT WELL. PT GIVEN NORCO AT 2031H AND 0427H FOR PAIN ON HER ABDOMEN. PT TOLERATED IT WELL. PT AMBULATORY TO THE RESTROOM. SAFETY AND COMFORT PROVIDED. ALL NEEDS ARE MET. WILL ENDORSE ACCORDINGLY TO INCOMING NURSE FOR CONTINUITY OF CARE.
[2018-10-13] MEDS ORDERED: PANTOPRAZOLE SODIUM 40 MG TABLET.DR PO SCH (07:00)
--- NOTE | 2018-10-13 07:00 | NUR ---
WAITING STILL FOR VANCO TROUGH. ENDORSE TO DAYSHIFT NURSE. PT STABLE.
[2018-10-13 07:17] LABS: BASOPHILS % (AUTO) 0.3 % (0.0-2.0); EOSINOPHILS % (AUTO) 0.4 % (0.0-7.0); HEMATOCRIT 34.2 % (31.2-41.9); HEMOGLOBIN 11.1 g/dL (10.9-14.3); LYMPHOCYTES % (AUTO) 17.4 % (20.5-51.5); MEAN CORPUSCULAR HEMOGLOBIN 29.8 uug (24.7-32.8); MEAN CORPUSCULAR HGB CONC 33 g/dL (32.3-35.6); MEAN CORPUSCULAR VOLUME 91.7 fL (75.5-95.3); MONOCYTES # (AUTO) 0.3 K/uL (2.0-10.0); MONOCYTES % (AUTO) 5.7 % (0.0-11.0); NEUTROPHILS # (AUTO) 4.2 K/uL (1.8-8.9); NEUTROPHILS % (AUTO) 76.2 % (38.5-71.5); PLATELET COUNT (AUTO) 288 K/uL (179-408); RED BLOOD CELL COUNT(AUTO) 3.73 MIL/uL (3.63-4.92); WHITE BLOOD COUNT (AUTO) 5.6 K/uL (3.8-11.8)
--- NOTE | 2018-10-13 07:24 | NUR ---
PATIENT IS SLEEPING IN BED, PT SHOWS NO SIGNS OF ACUTE DISTRESS. SAFETY AND COMFORT REINFORCED. CALLED LAB FOR VANCO LEVEL BUT IT IS NOT READY YET, SAID ANOTHER 10 MINUTS
[2018-10-13] MEDS: DEXTROSE 5% IV SCH (07:35)
[2018-10-13] MEDS: VANCOMYCIN IV SCH (07:35)
[2018-10-13] MEDS: NICOTINE 21 MG/24HR PATCH TD SCH (08:00)
[2018-10-13] MEDS: ACIDOPHILUS/BULGARICUS CHEW TAB PO SCH ×2 (08:00→20:23)
[2018-10-13] MEDS: IV NS 1000 ML 1,000 ML IV PRN (09:01)
--- NOTE | 2018-10-13 09:21 | NUR ---
Clinical Pharmacy Note: Vancomycin Pharmacy to Dose Subjective: To continue vancomycin in this 63 y/o female for indication of "suspected infection" (ab wall cellulitis) Objective: weight 58kg height 167cm BUN 16 (10/12) Scr 0.7 (10/12) Wbc 5.6 Temp 98.6 Vanco trough level: 8.6 (drawn late at 0718 instead of 0530 on 10/13) Assessment/Plan Will change vanco dseo from vanco 850mg IV q14 h to vanco 1gm IV q16h for predicted vanco trough level of 15 mcg/ml at steady state. 1st dose today at 2100. Plan to vanco trough before 4th scheduled dose ( not yet ordered). Will adjust the dose if needed for renal function. Will follow
[2018-10-13 11:27] VITALS: BP 146/86
[2018-10-13] MEDS: LORAZEPAM 2 MG/1 ML VIAL IV PRN ×2 (13:17→20:30)
[2018-10-13 14:06] LABS: HEPATITIS A AB, IgM Negative (Negative); HEPATITIS A AB, TOTAL Positive (Negative); HEPATITIS B SURFACE AB Non Reactive (.); HEPATITIS B SURFACE AG Negative (Negative)
--- NOTE | 2018-10-13 14:51 | NUR ---
WOUND CARE CONSULT: PT PRESENTS WITH SURGICAL WOUND TO ABDOMEN WITH RED GRANULATION TISSUE AND SCANT AMOUNT OF PURULENT DRAINAGE, SMALL AMOUNT OF PINK DRAINAGE, NO ODOR. RECOMMENDATIONS MADE FOR WOUND CARE. DISCUSSED WITH NURSING STAFF. PT IS AMBULATORY AND CONTINENT. WILL SEE PRN. NEGRETE IN AGREEMENT WITH PLAN OF CARE. Addendum: 10/13/18 at 1453 by SABINO HART RN Amended: Links added.
[2018-10-13 16:23] VITALS: BP 152/69
--- NOTE | 2018-10-13 18:40 | NUR ---
PATIENT IS AO4, NO ACUTE DISTRESS THIS SHIFT, NO FEVER, DRESSING CHANGED WITH WOUND CARE NURSE , ABX ADMIT W/O COMPLICATIONS SAFETY MAINTAINED
--- NOTE | 2018-10-13 20:00 | NUR ---
Pt. resting in bed alert oriented x4, pt. states she is agitated and in pain. Assessed pt. and will look at medications prescribed. Pt. denies any SOB or difficulty breathing. Dressing on abdomen changed by AM nurse and wound care nurse. AM nurse states no dressing change on PM shift, will look through orders. Midline in R upper arm patent. Safety measures in place will continue to monitor.
[2018-10-13 20:18] VITALS: BP 122/63
--- NOTE | 2018-10-13 20:30 | NUR ---
Pt. states she is agitated and has anxiety. Vital signs checked. Prescribed Ativan given. Will continue to monitor.
[2018-10-13] MEDS ORDERED: VANCOMYCIN IV 1 G in PREMIXED 0 EACH IV SCH (21:00)
[2018-10-13] MEDS: HYDROCODONE/APAP 5-325MG TABLET PO PRN (21:51)
[2018-10-14] MEDS: IV NS 1000 ML 1,000 ML IV PRN (01:27)
[2018-10-14] MEDS: HYDROCODONE/APAP 10-325 MG TABLET PO PRN (05:02)
[2018-10-14] MEDS: PIPERACILLIN/TAZOBACTAM/D5W 3.375 G in PREMIXED 1 EACH IV SCH (05:49)
[2018-10-14 06:09] VITALS: BP 137/75
[2018-10-14 06:34] VITALS: BP 137/75
[2018-10-14 06:37] LABS: BASOPHILS % (AUTO) 0.4 % (0.0-2.0); EOSINOPHILS % (AUTO) 0.6 % (0.0-7.0); HEMATOCRIT 31.1 % (31.2-41.9); HEMOGLOBIN 10.3 g/dL (10.9-14.3); LYMPHOCYTES # (AUTO) 1.2 K/uL (20.0-40.0); MEAN CORPUSCULAR HEMOGLOBIN 29.9 uug (24.7-32.8); MEAN CORPUSCULAR HGB CONC 33 g/dL (32.3-35.6); MEAN CORPUSCULAR VOLUME 90.3 fL (75.5-95.3); MONOCYTES # (AUTO) 0.4 K/uL (2.0-10.0); MONOCYTES % (AUTO) 8.2 % (0.0-11.0); NEUTROPHILS # (AUTO) 3.6 K/uL (1.8-8.9); NEUTROPHILS % (AUTO) 67.8 % (38.5-71.5); PLATELET COUNT (AUTO) 308 K/uL (179-408); RED BLOOD CELL COUNT(AUTO) 3.44 MIL/uL (3.63-4.92); WHITE BLOOD COUNT (AUTO) 5.3 K/uL (3.8-11.8)
--- NOTE | 2018-10-14 06:48 | NUR ---
Pt. is resting in bed. Pt. slept intermittently throughout night. Pt. given Austin at 0502 for 8/10 pain in abdomen. Reassessed pain level, pt. states Austin helped. All prescribed medication given. Vital signs stable. Safety measures in place. Will continue to monitor pt and endorse to AM nurse for continuity of care.
[2018-10-14 06:49] LABS: CREATININE 0.7 mg/dL (0.6-1.3); POTASSIUM 3.2 mmol/L (3.5-5.1)
--- NOTE | 2018-10-14 07:00 | NUR ---
Received patient resting in bed, easily to arouse. No signs of acute distress. No complaints of pain or SOB.
[2018-10-14] MEDS: NICOTINE 21 MG/24HR PATCH TD SCH (08:00)
[2018-10-14] MEDS: ACIDOPHILUS/BULGARICUS CHEW TAB PO SCH (08:00)
[2018-10-14] MEDS ORDERED: SODIUM HYPOCHLORITE 0.125% 473 ML BOTTLE TP SCH (09:00)
[2018-10-14] MEDS: HYDROCODONE/APAP 5-325MG TABLET PO PRN (09:57)
[2018-10-14] MEDS ORDERED: CEPH-570 PO (10:36)
[2018-10-14] MEDS ORDERED: DOXY100C41 PO (10:36)
[2018-10-14] MEDS ORDERED: POTASSIUM CHLORIDE 20 MEQ TAB.PRT.SR PO ONE (10:45)
--- NOTE | 2018-10-14 10:46 | NUR ---
Clinical Pharmacy Note: Vancomycin Pharmacy to Dose Subjective: To continue vancomycin in this 63 y/o female for indication of "suspected infection" (ab wall cellulitis) Objective: weight 58kg height 167cm BUN 9 Scr 0.7 Wbc 5.3 Temp 98.2 Vanco trough level: 8.6 (drawn late at 0718 instead of 0530 on 10/13) Assessment/Plan Will continue same dose of vanco 1gm IV q16h for today. 2nd dose today at 1300. Plan to vanco trough before 4th scheduled dose ( not yet ordered). Will adjust the dose if needed for renal function. Will follow
[2018-10-14 12:03] VITALS: BP 129/60
--- NOTE | 2018-10-14 12:16 | NUR ---
dc orders received noted and carried out,dc midline per md orders,.pt refused to go to [facility],pt left the facility via her bicycle ,pt said she will follow up with the wound care clinic
== END 2018-10-14 12:10 | disposition home or self-care (01) | DRG 383 ==
LOC: ER 21:04 → MEDSURG3 10-11 02:33
PROVIDERS: ADMIT Nurse Practitioner Acute Care; ATTEND Nurse Practitioner Acute Care
PROC: 0J983ZZ Drainage of Abdomen Subcutaneous Tissue and Fascia, Percutaneous Approach (ICD-10-PCS; principal; 2018-10-11)
PROC: 05HY33Z Insertion of Infusion Device into Upper Vein, Percutaneous Approach (ICD-10-PCS; principal; 2018-10-11)
DX: L02.211 Cutaneous abscess of abdominal wall (principal); E44.0 Moderate protein-calorie malnutrition; R64 Cachexia; F11.20 Opioid dependence, uncomplicated; S30.1XXS Contusion of abdominal wall, sequela; D64.9 Anemia, unspecified; F10.10 Alcohol abuse, uncomplicated; L03.311 Cellulitis of abdominal wall; F12.90 Cannabis use, unspecified, uncomplicated; S31.1 Open wound of abdominal wall without penetration into peritoneal cavity; X78.8XXS Intentional self-harm by other sharp object, sequela; F15.10 Other stimulant abuse, uncomplicated; F17.210 Nicotine dependence, cigarettes, uncomplicated; Z59.0 Homelessness; Z96.641 Presence of right artificial hip joint; Z86.19 Personal history of other infectious and parasitic diseases; J44.9 Chronic obstructive pulmonary disease, unspecified; F19.10 Other psychoactive substance abuse, uncomplicated; G89.4 Chronic pain syndrome; Y90.9 Presence of alcohol in blood, level not specified
CPT/HCPCS: 36415; 70030-TC; 71045; 76705; 83605; 83735; 84100; 85025; 85730; 86706; 86708; 86709; 86803; 87040; 87070; 87075; 87086; 87340; 87806; 93005; A4217; A4649; A4663; G0378; J1100; J1170; J1885; J2060; J2270; J2543; J3010; J3370; J3490; J7030; J7050; J7060; Q9967

== ENCOUNTER 2018-12-08 21:12 | Emergency (ER) | payer MEDICAID ==
[~2018-12-08] VITALS: Ht 170.2 cm; Wt 54.4 kg
[~2018-12-08 21:12] MED LIST changes: +CEPH-570 PO; +DOXY100C41 PO; -IBUP-1954 PO
--- NOTE | 2018-12-08 21:35 | NUR ---
Patient ambulated with stable gait. Speech clear, speaks in complete sentences. No neuro deficits. A/Ox4. Patient came for c/o R.Knee pain. Respiratory even and unlabored, no cough no sob. No cardiovascular distress noted. No GI/ distress.
--- NOTE | 2018-12-08 22:57 | NUR ---
US at bedside for scan
--- NOTE | 2018-12-08 23:53 | NUR ---
Patient discharged to home in stable conditon. Written and verbal after care instructions given. Patient verbalizes understanding of instructions. Patient ambulated with stable gait.
[2018-12-08] MEDS ORDERED: HYDROCODONE/APAP 5-325MG TABLET ONE (23:54)
[2018-12-09] MEDS ORDERED: HYDROCODONE/APAP 5-325MG TABLET PO ONE
== END 2018-12-08 23:57 | disposition home or self-care (01) ==
LOC: ER 21:14
DX: M17.11 Unilateral primary osteoarthritis, right knee (principal); J44.9 Chronic obstructive pulmonary disease, unspecified; F41.9 Anxiety disorder, unspecified; F11.10 Opioid abuse, uncomplicated; F15.10 Other stimulant abuse, uncomplicated; F17.200 Nicotine dependence, unspecified, uncomplicated; Z59.0 Homelessness; Z79.899 Other long term (current) drug therapy
CPT/HCPCS: 73700; A4663

== ENCOUNTER 2019-03-23 12:00 | Emergency (ER) | payer MEDICAID ==
[~2019-03-23] VITALS: Ht 167.6 cm; Wt 54.4 kg
[2019-03-23] MEDS ORDERED: SULFAMETH/TRIMETH 800/160 MG TABLET PO ONE (12:15)
[2019-03-23] MEDS ORDERED: CEphaleXIN 500 MG CAPSULE PO ONE (12:15)
[2019-03-23] MEDS ORDERED: CEphaleXIN 500 MG CAPSULE ONE (12:20)
[2019-03-23] MEDS ORDERED: SULFAMETH/TRIMETH 800/160 MG TABLET ONE (12:20)
--- NOTE | 2019-03-23 12:20 | NUR ---
RT buttucks wound cleaned and dressed per md order.
--- NOTE | 2019-03-23 12:29 | NUR ---
Patient does not wish to proceed with medical care recommended by Dr. Alvin Mcfarland ). Patient given information related to possible complications, up to and including , which could occur as a result of leaving the hospital at this time. Patient verbalizes understanding of risks involved due to leaving against medical advice. Patient has signed AMA form. Patient given written and verbal discharge instructions. Patient verbalizes understanding of instructions. Patient is ambulatory with steady gait. Refuses offer of intermediate placement. Patient given list of available shelters in surrounding area.
== END 2019-03-23 12:31 | disposition home or self-care (01) ==
LOC: ER 12:00
DX: L03.317 Cellulitis of buttock (principal); L02.31 Cutaneous abscess of buttock; J44.9 Chronic obstructive pulmonary disease, unspecified; F17.210 Nicotine dependence, cigarettes, uncomplicated; F41.9 Anxiety disorder, unspecified; F11.10 Opioid abuse, uncomplicated; F12.10 Cannabis abuse, uncomplicated; Z59.0 Homelessness; Z79.2 Long term (current) use of antibiotics
CPT/HCPCS: A4217; A4663

== ENCOUNTER 2019-03-27 17:43 | Inpatient (IN) | payer MEDICAID ==
[~2019-03-27] VITALS: Ht 172.7 cm; Wt 50.8 kg
[2019-03-27] MEDS ORDERED: METH40TA2 PO (18:13)
[2019-03-27] MEDS ORDERED: VANCOMYCIN IV 1,000 MG in IV DEXTROSE 5% 250 ML IV ONE (18:30)
[2019-03-27] MEDS ORDERED: TDAP DIPH,PERTUSS,TET VAC/PF 0.5 ML DISP.SYRIN IM ONE ×2 (18:30→19:08)
[2019-03-27 19:03] LABS: BASOPHILS # (AUTO) 0.1 K/uL (0.0-8.0); BASOPHILS % (AUTO) 1.2 % (0.0-2.0); EOSINOPHILS # (AUTO) 0.1 K/uL (0.0-0.7); EOSINOPHILS % (AUTO) 2.4 % (0.0-7.0); HEMATOCRIT 28.4 % (31.2-41.9); HEMOGLOBIN 9.4 g/dL (10.9-14.3); LYMPHOCYTES # (AUTO) 1.4 K/uL (20.0-40.0); LYMPHOCYTES % (AUTO) 27.3 % (20.5-51.5); MEAN CORPUSCULAR HEMOGLOBIN 29.7 uug (24.7-32.8); MEAN CORPUSCULAR HGB CONC 33 g/dL (32.3-35.6); MEAN CORPUSCULAR VOLUME 89.7 fL (75.5-95.3); MONOCYTES # (AUTO) 0.4 K/uL (2.0-10.0); MONOCYTES % (AUTO) 8.3 % (0.0-11.0); NEUTROPHILS % (AUTO) 60.8 % (38.5-71.5); PLATELET COUNT (AUTO) 436 K/uL (179-408); RED BLOOD CELL COUNT(AUTO) 3.17 MIL/uL (3.63-4.92); WHITE BLOOD COUNT (AUTO) 4.9 K/uL (3.8-11.8)
[2019-03-27] MEDS ORDERED: VANCOMYCIN IV 200 ML ONE (19:08)
[2019-03-27 19:13] LABS: CREATININE 0.9 mg/dL (0.6-1.3); POTASSIUM 3.9 mmol/L (3.5-5.1)
[2019-03-27 19:19] LABS: BILIRUBIN,DIRECT 0.1 mg/dL (0.0-0.2); BILIRUBIN,TOTAL 0.3 mg/dL (0.2-1.0); TOTAL PROTEIN, SERUM 6.7 g/dL (6.4-8.2)
--- NOTE | 2019-03-27 19:56 | NUR ---
Report given to SLOANE Victoria
--- NOTE | 2019-03-27 19:58 | NUR ---
Report given to SLOANE Humphreys
--- NOTE | 2019-03-27 20:45 | NUR ---
Patient still in ER awaiting authorization for admission.Patient was in the bathroom and came out with IV dislodged.
[2019-03-27] MEDS ORDERED: ACETAMINOPHEN 325 MG TABLET PO PRN (21:30)
[2019-03-27] MEDS ORDERED: ZOLPIDEM 5 MG TABLET PO PRN (21:30)
[2019-03-27] MEDS ORDERED: MAGNESIUM HYDROXIDE 30 ML LIQUID UDC PO PRN (21:30)
[2019-03-27] MEDS ORDERED: ONDANSETRON 4 MG/2 ML VIAL IV PRN (21:30)
--- NOTE | 2019-03-27 21:47 | NUR ---
Patient has authorization to be admitted to hospital will transfer to floor with her belongings.
[2019-03-27 21:56] VITALS: BP 129/66
[2019-03-27] MEDS ORDERED: PIPERACILLIN/TAZOBACTAM/D5W 100 ML IV ONE (21:59)
[2019-03-27] MEDS: PIPERACILLIN SODIUM/TAZOBACTAM 3.375 G in IV DEXTROSE 5% 50 ML IV SCH (23:03)
[2019-03-27] MEDS: IV NS 1000 ML 1,000 ML IV PRN (23:03)
[2019-03-27] MEDS: KETOROLAC TROMETHAMINE 15 MG INJ IVP PRN (23:26)
[2019-03-28 05:30] VITALS: BP 112/60
[2019-03-28] MEDS: PIPERACILLIN SODIUM/TAZOBACTAM 3.375 G in IV DEXTROSE 5% 50 ML IV SCH ×3 (05:33→22:49)
[2019-03-28] MEDS: PANTOPRAZOLE SODIUM 40 MG TABLET.DR PO SCH (06:21)
--- NOTE | 2019-03-28 07:30 | NUR ---
Patient calm and comfortable with no signs of distress; patient will continue to be monitored.
[2019-03-28 08:26] LABS: BASOPHILS % (AUTO) 1.3 % (0.0-2.0); EOSINOPHILS # (AUTO) 0.1 K/uL (0.0-0.7); EOSINOPHILS % (AUTO) 3.4 % (0.0-7.0); HEMATOCRIT 30.3 % (31.2-41.9); HEMOGLOBIN 10.1 g/dL (10.9-14.3); LYMPHOCYTES # (AUTO) 1.1 K/uL (20.0-40.0); LYMPHOCYTES % (AUTO) 32.1 % (20.5-51.5); MEAN CORPUSCULAR HEMOGLOBIN 29.5 uug (24.7-32.8); MEAN CORPUSCULAR HGB CONC 33 g/dL (32.3-35.6); MEAN CORPUSCULAR VOLUME 88.5 fL (75.5-95.3); MONOCYTES # (AUTO) 0.4 K/uL (2.0-10.0); MONOCYTES % (AUTO) 11.8 % (0.0-11.0); NEUTROPHILS # (AUTO) 1.7 K/uL (1.8-8.9); NEUTROPHILS % (AUTO) 51.4 % (38.5-71.5); PLATELET COUNT (AUTO) 449 K/uL (179-408); RED BLOOD CELL COUNT(AUTO) 3.42 MIL/uL (3.63-4.92); WHITE BLOOD COUNT (AUTO) 3.4 K/uL (3.8-11.8)
[2019-03-28 08:43] LABS: BILIRUBIN,TOTAL 0.4 mg/dL (0.2-1.0); CREATININE 0.9 mg/dL (0.6-1.3); MAGNESIUM 2.2 mg/dL (1.8-2.4); PHOSPHOROUS 3.3 mg/dL (2.5-4.9); POTASSIUM 4.5 mmol/L (3.5-5.1); TOTAL PROTEIN, SERUM 6.2 g/dL (6.4-8.2)
[2019-03-28] MEDS ORDERED: METHADONE HCL PO SCH (09:00)
--- NOTE | 2019-03-28 09:13 | NUR ---
Clinical pharmacy note-Vancomycin dosing per pharmacy Subjective: To start Vancomycin dosing on this 64 yrs old female patient for cellulitis Objective: BUN 19 Scr 0.9 WBC 3.4 Temp 98 Ht 172cm Wt 51kg Assessment/Plan: Patient received vanco 1gm IVPB x1 on 03/27 at 199 in ED. Will start vanco 750mg IVPB q19h for predicted vanco trough level of 16 mcg/ml at steady state. 1st dose today at 1300. Plan to order vanco trough level before 4th dose (not yet ordered). Will continue to follow labs and adjust if condition were to change. Otherwise, if stable will continue current regimen.
[2019-03-28 12:07] VITALS: BP 126/48
[2019-03-28] MEDS ORDERED: METHADONE HCL 10 MG TABLET PO SCH (12:15)
[2019-03-28] MEDS ORDERED: CEPH-570 PO (12:43)
[2019-03-28] MEDS: METHADONE HCL 10 MG TABLET PO SCH (12:56)
[2019-03-28] MEDS: ENSURE WITH FIBER 237 ML LIQUID (CHOCOLATE) PO SCH ×2 (12:57→17:26)
[2019-03-28] MEDS: NICOTINE 7 MG/24HR PATCH TD SCH (12:57)
[2019-03-28] MEDS: KETOROLAC TROMETHAMINE 15 MG INJ IVP PRN ×2 (13:05→23:11)
[2019-03-28] MEDS: VANCOMYCIN IV 750 MG in IV DEXTROSE 5% 250 ML IV SCH ×2 (13:05→17:25)
[2019-03-28 16:13] VITALS: BP 123/56
[2019-03-28] MEDS: IV NS 1000 ML 1,000 ML IV PRN (18:56)
--- NOTE | 2019-03-28 19:31 | NUR ---
Patient with mild agitation through out shift ; patient redirected; patient had pic line placement around 1700 patient ; medication compliant ; patient with otherwise stable vital signs. Report given oncoming nurse.
[2019-03-28 20:13] VITALS: BP 107/48
[2019-03-28] MEDS: DOCUSATE SODIUM 100 MG CAPSULE PO SCH (20:29)
[2019-03-29 04:32] VITALS: BP 116/57
[2019-03-29] MEDS: PIPERACILLIN SODIUM/TAZOBACTAM 3.375 G in IV DEXTROSE 5% 50 ML IV SCH ×3 (05:59→21:01)
[2019-03-29] MEDS: PANTOPRAZOLE SODIUM 40 MG TABLET.DR PO SCH (06:03)
[2019-03-29 07:11] LABS: EOSINOPHILS # (AUTO) 0.1 K/uL (0.0-0.7); LYMPHOCYTES # (AUTO) 1.5 K/uL (20.0-40.0); MEAN CORPUSCULAR HGB CONC 33 g/dL (32.3-35.6); MEAN CORPUSCULAR VOLUME 90.1 fL (75.5-95.3); MONOCYTES # (AUTO) 0.3 K/uL (2.0-10.0); MONOCYTES % (AUTO) 7.8 % (0.0-11.0); NEUTROPHILS # (AUTO) 1.6 K/uL (1.8-8.9); NEUTROPHILS % (AUTO) 45.2 % (38.5-71.5); PLATELET COUNT (AUTO) 427 K/uL (179-408); WHITE BLOOD COUNT (AUTO) 3.6 K/uL (3.8-11.8)
[2019-03-29 07:15] LABS: MAGNESIUM 2.2 mg/dL (1.8-2.4); PHOSPHOROUS 3.2 mg/dL (2.5-4.9); POTASSIUM 4.6 mmol/L (3.5-5.1)
--- NOTE | 2019-03-29 07:25 | NUR ---
RECIEVED PATIENT SLEEPING IN BED. NO ACUTE DISTRESS NOTED. BED IN LOWEST POSITION, SIDE RAILS UP X2, CALL LIGHT WITHIN REACH. WILL CONTINUE TO MONITOR.
--- NOTE | 2019-03-29 07:55 | NUR ---
Clinical pharmacy note-Vancomycin dosing per pharmacy Subjective: To continue Vancomycin dosing on this 64 yrs old female patient for cellulitis Objective: BUN 17 Scr 1.0 WBC 3.6 Temp 98.1 Ht 172cm Wt 51kg Assessment/Plan: Will continue same dose of vanco 750mg IVPB q19h for predicted vanco trough level of 16 mcg/ml at steady state for today. RN gave 1st dose at 1730 instead of 1400 on 03/28. the 2nd dose has been rescheduled for 03/29 at 1230. Plan to order vanco trough level before 4th dose (not yet ordered). Will continue to follow labs and adjust if condition were to change. Otherwise, if stable will continue current regimen.
[2019-03-29] MEDS: NICOTINE 7 MG/24HR PATCH TD SCH (08:25)
[2019-03-29] MEDS: METHADONE HCL 10 MG TABLET PO SCH (08:25)
[2019-03-29] MEDS: ENSURE WITH FIBER 237 ML LIQUID (CHOCOLATE) PO SCH ×3 (08:29→16:32)
[2019-03-29 09:22] LABS: *BILIRUBIN,URIN NEGATIVE (NEGATIVE); *BLOOD, URINE NEGATIVE (NEGATIVE); *CLARITY,URINE CLEAR (CLEAR); *COLOR,URINE YELLOW (YELLOW); *KETONES,URINE NEGATIVE (NEGATIVE); *UROBILINOGEN,URINE 0.2 E.U./dl (NORMAL); LEUKOCYTE ESTERASE ,URINE NEGATIVE (NEGATIVE); NITRITE, URINE NEGATIVE (NEGATIVE); UGLUCOSE NEGATIVE (NEGATIVE)
[2019-03-29] MEDS: KETOROLAC TROMETHAMINE 15 MG INJ IVP PRN ×2 (10:26→16:32)
[2019-03-29 11:25] VITALS: BP 112/48
[2019-03-29] MEDS: IV NS 1000 ML 1,000 ML IV PRN (11:29)
--- NOTE | 2019-03-29 11:57 | NUR ---
WOUND CARE CONSULT: PT PRESENTS AMBULATORY AND CONTINENT WITH LEFT BUTTOCK WOUND, SACRAL DRY SCAB AND BILATERAL HIP SCARS. RECOMMEND SURGICAL CONSULT. DR ODILON VILLAFUERTE NOTIFIED OF SURGICAL CONSULT REQUEST. RECOMMENDATIONS MADE FOR WOUND CARE AND SKIN PROTECTION. DISCUSSED WITH NURSING STAFF. WILL SEE PRN. NEGRETE IN AGREEMENT WITH PLAN OF CARE. Addendum: 03/29/19 at 1159 by SABINO HART RN Amended: Links added. Addendum: 03/29/19 at 1326 by SABINO HART RN PT HAD TAPE RESIDUE ON HER SKIN WHICH WAS CLEANSED OFF REVEALING SACRAL DRY SCAB. PT STATES LIVES IN A TENT.
[2019-03-29] MEDS: VANCOMYCIN IV 750 MG in IV DEXTROSE 5% 250 ML IV SCH (11:59)
[2019-03-29] MEDS: SODIUM HYPOCHLORITE 0.125% 473 ML BOTTLE TP SCH (12:54)
[2019-03-29 15:31] VITALS: BP 99/49
--- NOTE | 2019-03-29 18:24 | NUR ---
PATIENT SLEPT INTERMITTENTLY THROUGHOUT DAY. WOUND CARE NURSE CAME TO SEE PATIENT, WOUND TREATMENT DONE. PATIENT REPORTED PAIN, PAIN MEDICATION ADMINISTERED. SAFETY MEASURES PROVIDED. WILL ENDORSE TO ONCOMING NURSE.
--- NOTE | 2019-03-29 19:20 | NUR ---
RECEIVED PATIENT LYING IN BED. IN NO ACUTE DISTRESS. DENIES ANY PAIN OR SOB AT THIS TIME. MIDLINE ON RIGHT UPPER ARM INTACT AND PATENT. IVF INFUSING. SAFETY MEASURE INITIATED AND CALL [facility] WITHIN REACHED.
[2019-03-29 20:23] VITALS: BP 131/63
[2019-03-29] MEDS: DOCUSATE SODIUM 100 MG CAPSULE PO SCH (20:53)
[2019-03-30] MEDS: IV NS 1000 ML 1,000 ML IV PRN (02:10)
[2019-03-30 04:53] VITALS: BP 107/53
[2019-03-30] MEDS: PIPERACILLIN SODIUM/TAZOBACTAM 3.375 G in IV DEXTROSE 5% 50 ML IV SCH ×2 (05:11→14:06)
--- NOTE | 2019-03-30 06:10 | NUR ---
AAOX4. IN NO ACUTE DISTRESS. DENIES ANY PAIN OR SOB . MIDLINE ON RIGHT UPPER ARM INTACT AND PATENT. IVF INFUSING. NO ADVERSE EFFECT NOTED FROM IV ABX. SAFETY MEASURE MAINTAINED AND CALL [facility] WITHIN REACHED.
[2019-03-30] MEDS: VANCOMYCIN IV 750 MG in IV DEXTROSE 5% 250 ML IV SCH (06:30)
[2019-03-30] MEDS: PANTOPRAZOLE SODIUM 40 MG TABLET.DR PO SCH (06:30)
--- NOTE | 2019-03-30 07:20 | NUR ---
RECEIVED PATIENT AWAKE AND ALERT IN BED. NO ACUTE DISTRESS NOTED. PATIENT DENIES PAIN AND DISCOMFORT. BED IN LOWEST POSITION, SIDE RAILS UP X2, CALL LIGHT WITHIN REACH. WILL CONTINUE TO MONITOR.
[2019-03-30] MEDS: SODIUM HYPOCHLORITE 0.125% 473 ML BOTTLE TP SCH (08:49)
[2019-03-30] MEDS: METHADONE HCL 10 MG TABLET PO SCH (08:49)
[2019-03-30] MEDS: ENSURE WITH FIBER 237 ML LIQUID (CHOCOLATE) PO SCH ×3 (08:49→16:45)
[2019-03-30] MEDS: NICOTINE 7 MG/24HR PATCH TD SCH (08:49)
[2019-03-30 11:21] VITALS: BP 133/53
[2019-03-30] MEDS ORDERED: SWABABLE VALVE TRANSFER SET EA MC ONE (11:29)
[2019-03-30] MEDS ORDERED: IOHEXOL 300MG/ML 100 ML INFUS..BTL ONE (11:30)
[2019-03-30] MEDS ORDERED: IV NORMAL SALINE 250 ML IV ONE (11:30)
--- NOTE | 2019-03-30 12:36 | NUR ---
Clinical pharmacy note-Vancomycin dosing per pharmacy Subjective: To continue Vancomycin dosing on this 64 yrs old female patient for cellulitis Objective: BUN 17 (03/29) Scr 1.0(03/29) WBC 3.6(03/29) Temp 98.7 Ht 172cm Wt 51kg Assessment/Plan: Will continue same dose of vanco 750mg IVPB q19h for predicted vanco trough level of 16 mcg/ml at steady state for today. Plan to order vanco trough level before 4th dose (ordered for tomorrow at 0200). Will endorse RN to hold dose for over 20.
[2019-03-30 15:43] VITALS: BP 111/47
[2019-03-30] MEDS: KETOROLAC TROMETHAMINE 15 MG INJ IVP PRN (16:45)
--- NOTE | 2019-03-30 18:15 | NUR ---
PATIENT DISCHARGED TO SELF. PATIENT REFUSED ALL RECOURSES FOR HOUSING FOR HOMELESS POPULATION AND TRANSPORTATION. REVIEWED D/C INSTRUCTIONS WITH PATIENT, PATIENT VERBALLY UNDERSTANDS D/C INSTRUCTIONS. PATIENT RECEIVED PRESCRIPTION. PATIENT AGREED TO GO TO THE WOUND CLINIC FOR FURTHER TREATMENT. REMOVED MIDLINE. ESCORTED PATIENT DOWN TO LOBBY.
== END 2019-03-30 18:20 | disposition home or self-care (01) | DRG 384 ==
LOC: ER 17:46 → MEDSURG3 21:10
PROVIDERS: ADMIT Internal Medicine; ATTEND Nurse Practitioner Acute Care
PROC: 0JB90ZZ Excision of Buttock Subcutaneous Tissue and Fascia, Open Approach (ICD-10-PCS; principal; 2019-03-30)
DX: S31.823A Puncture wound without foreign body of left buttock, initial encounter (principal); E43 Unspecified severe protein-calorie malnutrition; F11.10 Opioid abuse, uncomplicated; J43.9 Emphysema, unspecified; D72.819 Decreased white blood cell count, unspecified; D50.9 Iron deficiency anemia, unspecified; L03.317 Cellulitis of buttock; X78.8XXA Intentional self-harm by other sharp object, initial encounter; Y93.89 Activity, other specified; E44.0 Moderate protein-calorie malnutrition; F17.210 Nicotine dependence, cigarettes, uncomplicated; Z59.0 Homelessness; F15.10 Other stimulant abuse, uncomplicated; Y92.89 Other specified places as the place of occurrence of the external cause; Z86.19 Personal history of other infectious and parasitic diseases; Z68.1 Body mass index [BMI] 19.9 or less, adult; F19.10 Other psychoactive substance abuse, uncomplicated; Z96.641 Presence of right artificial hip joint; L02.31 Cutaneous abscess of buttock; G89.4 Chronic pain syndrome; F12.90 Cannabis use, unspecified, uncomplicated; Z79.891 Long term (current) use of opiate analgesic
CPT/HCPCS: 36415; 72193; 83550; 83605; 83735; 84100; 85025; 87040; 87070; 87086; 87400; 87806; 90715; A4663; A9150; G0378; J1885; J2543; J3370; J7030; J7050; J7060; Q9967

== ENCOUNTER 2020-06-19 14:25 | Emergency (ER) | payer MEDICAID ==
[~2020-06-19] VITALS: Ht 172.7 cm; Wt 54.4 kg
[~2020-06-19 14:25] MED LIST changes: -CEPH-570 PO; +METH40TA2 PO
[2020-06-19] MEDS ORDERED: LIDOCAINE HCL 1% 20 ML VIAL TP ONE (14:45)
[2020-06-19] MEDS ORDERED: SULFAMETH/TRIMETH 800/160 MG TABLET PO ONE (14:45)
[2020-06-19] MEDS ORDERED: CEphaleXIN 500 MG CAPSULE PO ONE (14:45)
[2020-06-19] MEDS ORDERED: CEphaleXIN 500 MG CAPSULE ONE (14:51)
[2020-06-19] MEDS ORDERED: SULFAMETH/TRIMETH 800/160 MG TABLET ONE (14:51)
[2020-06-19] MEDS ORDERED: LIDOCAINE HCL 1% 20 ML VIAL ONE (14:51)
[2020-06-19] MEDS ORDERED: SULF1TAB48 PO (15:02)
[2020-06-19] MEDS ORDERED: CEPH500C2 PO (15:02)
[2020-06-19 15:44] VITALS: BP 122/76
--- NOTE | 2020-06-19 15:45 | NUR ---
Patient given written and verbal discharge instructions. Patient verbalizes understanding of instructions. Patient is ambulatory with steady gait. Refuses offer of [facility] placement. Patient given list of available shelters in surrounding area.
== END 2020-06-19 15:45 | disposition home or self-care (01) ==
LOC: ER 14:25
DX: L02.11 Cutaneous abscess of neck (principal); Z59.0 Homelessness; J44.9 Chronic obstructive pulmonary disease, unspecified; Z96.641 Presence of right artificial hip joint; F17.200 Nicotine dependence, unspecified, uncomplicated; F41.9 Anxiety disorder, unspecified; F11.20 Opioid dependence, uncomplicated; Z86.19 Personal history of other infectious and parasitic diseases
CPT/HCPCS: 10060; 76536; 87070; 99284; J3490; 87077; A4663

== ENCOUNTER 2020-06-21 17:13 | Emergency (ER) | payer MEDICAID ==
[~2020-06-21] VITALS: Ht 170.2 cm; Wt 54.4 kg
[~2020-06-21 17:13] MED LIST changes: +CEPH500C2 PO; +SULF1TAB48 PO
[2020-06-21] MEDS ORDERED: NEOMY/BACITRA/POLYMYXIN B OINT UD PACKET TP ONE ×2 (17:38→17:45)
--- NOTE | 2020-06-21 17:48 | NUR ---
Patient is eating hot dinner tray with good appetite.
--- NOTE | 2020-06-21 17:52 | NUR ---
Patient was given written and verbal discharge instructions. Patient verbalized understanding and compliance of instructions. Patient was ambulatory with steady gait. Patient refused offer of custodial placement@ this time. "I want to go anywhere." per patient. Patient was also given a list of available shelters in surrounding area.
--- NOTE | 2020-06-21 18:11 | NUR ---
After finishing her dinner, patient left ER with steady gait.
== END 2020-06-21 18:11 | disposition home or self-care (01) ==
LOC: ER 17:14
DX: Z48.817 Encounter for surgical aftercare following surgery on the skin and subcutaneous tissue (principal); L02.11 Cutaneous abscess of neck; Z59.0 Homelessness; Z96.641 Presence of right artificial hip joint; J44.9 Chronic obstructive pulmonary disease, unspecified; Z86.19 Personal history of other infectious and parasitic diseases
CPT/HCPCS: A4663

== ENCOUNTER 2020-06-23 18:52 | Emergency (ER) | payer MEDICAID ==
[~2020-06-23] VITALS: Ht 172.7 cm; Wt 54.4 kg
[2020-06-23] MEDS ORDERED: ONDANSETRON ODT 4 MG TAB.RAPDIS SL ONE (19:15)
[2020-06-23] MEDS ORDERED: HYDROCODONE/APAP 10-325 MG TABLET PO ONE (19:15)
[2020-06-23] MEDS ORDERED: HYDR-3974 PO (19:26)
[2020-06-23] MEDS ORDERED: ONDANSETRON ODT 4 MG TAB.RAPDIS ONE (19:33)
[2020-06-23] MEDS ORDERED: HYDROCODONE/APAP 10-325 MG TABLET ONE (19:33)
[2020-06-23 20:04] VITALS: BP 130/61
--- NOTE | 2020-06-23 20:04 | NUR ---
Patient discharged to home in stable condition. Written and verbal after care instructions given. Patient verbalizes understanding of instructions. Stressed follow up or return to ER for worsening s/s. Belongings with patient. Teaching done. Rx given. Instructed to not drive. Homeless checklist complete.
== END 2020-06-23 20:00 | disposition home or self-care (01) ==
LOC: ER 18:52
DX: S93.492A Sprain of other ligament of left ankle, initial encounter (principal); X58.XXXA Exposure to other specified factors, initial encounter; Y92.488 Other paved roadways as the place of occurrence of the external cause; Z59.0 Homelessness; L02.11 Cutaneous abscess of neck; F17.210 Nicotine dependence, cigarettes, uncomplicated; J44.9 Chronic obstructive pulmonary disease, unspecified; Z96.641 Presence of right artificial hip joint; E11.9 Type 2 diabetes mellitus without complications
CPT/HCPCS: 73610; A4663; Q0162

== ENCOUNTER 2020-06-27 01:52 | Emergency (ER) | payer MEDICAID ==
[~2020-06-27] VITALS: Ht 170.2 cm; Wt 54.4 kg
[~2020-06-27 01:52] MED LIST changes: +HYDR-3974 PO
[2020-06-27] MEDS ORDERED: SULF1TAB48 PO (02:12)
[2020-06-27] MEDS ORDERED: SULFAMETH/TRIMETH 800/160 MG TABLET ONE (02:14)
--- NOTE | 2020-06-27 02:14 | NUR ---
Patient given written and verbal discharge instructions. Patient verbalizes understanding of instructions. Patient is ambulatory with steady gait. Refuses offer of skilled nursing placement. Patient given list of available shelters in surrounding area. A/Ox4, able to ambulate with steady gait. All belongings returned to patient prior to departure.
[2020-06-27 02:15] VITALS: BP 121/73
[2020-06-27] MEDS ORDERED: SULFAMETH/TRIMETH 800/160 MG TABLET PO ONE (02:15)
== END 2020-06-27 02:15 | disposition home or self-care (01) ==
LOC: ER 01:54
DX: Z48.817 Encounter for surgical aftercare following surgery on the skin and subcutaneous tissue (principal); F17.210 Nicotine dependence, cigarettes, uncomplicated; Z96.641 Presence of right artificial hip joint; J44.9 Chronic obstructive pulmonary disease, unspecified; E11.9 Type 2 diabetes mellitus without complications; Z59.0 Homelessness; F11.20 Opioid dependence, uncomplicated
CPT/HCPCS: A4663